=== PATIENT | female | born 1940 | race Caucasian/White ===

== ENCOUNTER 2019-12-07 12:08 | Inpatient (IN) | payer OTHER ==
[2019-12-07] MEDS ORDERED: CEFTRIAXONE/SWI 1gm 1 GM/10 ML SYR ONE (13:23)
[2019-12-07] MEDS ORDERED: NA CHLORIDE 0.9% 1,000 ML ONE (13:23)
[2019-12-07 13:25] LABS: Urine Blood TRACE (NEG); Urine Glucose NEGATIVE (NEG); Urine Protein TRACE (NEG); Urine Specific Gravity 1.015 (1.005-1.030); Urine pH 5.5 (5.0-7.0)
--- NOTE | 2019-12-07 13:27 | RAD REPORT ---
EXAM DESCRIPTION: RAD - Chest Single View - 12/07/2019 1:20 pm CLINICAL HISTORY: Cough;COPD COMPARISON: November 2017 TECHNIQUE: AP portable chest image was obtained 12/07/2019 1:20 pm . FINDINGS: Lung volumes are low. Lung markings are further accentuated by large body habitus and port able technique. No dense consolidation in the mid or upper lung mann. Bilateral pleural effusions a re present. Cardiomegaly is present with vascular engorgement. No pneumothorax. No acute bony abnorma lity seen. No acute aortic findings suspected. IMPRESSION: Mild CHF/volume overload pattern accentuated by exam limitations.
[2019-12-07 13:31] LABS: Absolute Lymphocytes (CBC) 1.1 K/uL (0.7-4.9); Basophils % 0.9 % (0-1.3); Hematocrit 36.8 % (36.0-45.0); Lymphocytes % 8.5 % (15.3-44.8); MPV 8.8 fL (7.6-11.3); RBC Red Blood Cell Count 4.45 M/uL (3.86-4.86)
[2019-12-07 13:40] LABS: Urine Bacteria LOADED /HPF (<20); Urine Culture Reflex Order NOT NEEDED; Urine RBC <5 /HPF (NONE SEEN)
[2019-12-07 13:51] LABS: ALT/SGPT 9 U/L (12-78); AST/SGOT 7 U/L (15-37); Albumin 2.5 g/dL (3.4-5.0); Alkaline Phosphatase 99 U/L (45-117); BUN Blood Urea Nitrogen 51 mg/dL (7-18); Bicarbonate 19 mmol/L (21-32); Bilirubin Direct < 0.1 mg/dL (0-0.2); Bilirubin Total 0.3 mg/dL (0.2-1.0); Glucose Level 121 mg/dL (74-106); Magnesium 2.3 mg/dL (1.8-2.4); NT PRO-BNP 9816 pg/mL (<450); Protein, Total 6.7 g/dL (6.4-8.2); Sodium Level 136 mmol/L (136-145); Troponin (Emerg Dept Use Only) < 0.02 ng/mL (0.0-0.045)
[2019-12-07 13:55] LABS: Potassium 6.1 mmol/L (3.5-5.1)
--- NOTE | 2019-12-07 14:08 | EDPHYS ---
Physician Documentation [facility] Name: Frieda Mayorga Age: 79 yrs Sex: Female : 1940 Arrival Date: 12/07/2019 Time: 12:19 Bed 8 Private MD: ED Physician Von Diez HPI: 12/06 13:01 This 79 yrs old Female presents to ER via EMS with complaints of Weakness. win 13:01 The patient presents to the emergency department with weakness of the entire body, win generalized weakness. Onset: The symptoms/episode began/occurred 2 day(s) ago. Historical: - Allergies: 12:27 Demerol; bp - Home Meds: 12:27 Clarinex Oral [Active]; Lasix Oral [Active]; Lisinopril Oral [Active]; Lyrica Oral bp [Active]; Melatonin Oral [Active]; Metformin Oral [Active]; ropinirole oral oral [Active]; sertraline oral oral [Active]; Singulair Oral [Active]; Spironolactone Oral [Active]; Trazodone Oral [Active]; Ventolin Nebulizer [Active]; - PMHx: 12:27 COPD; Diabetes - NIDDM; Hypertension; bp - Immunization history:: Adult Immunizations up to date. - Social history:: Smoking status: Patient denies any tobacco usage or history of. ROS: 13:03 Constitutional: Negative for fever, chills, and weight loss, Eyes: Negative for injury, win pain, redness, and discharge, ENT: Negative for injury, pain, and discharge, Neck: Negative for injury, pain, and swelling, Cardiovascular: Negative for chest pain, palpitations, and edema, Respiratory: Negative for shortness of breath, cough, wheezing, and pleuritic chest pain, Abdomen/GI: Negative for abdominal pain, nausea, vomiting, diarrhea, and constipation, Back: Negative for injury and pain, MS/Extremity: Negative for injury and deformity, Skin: Negative for injury, rash, and discoloration, Psych: Negative for depression, anxiety, suicide ideation, homicidal ideation, and hallucinations, Allergy/Immunology: Negative for hives, rash, and allergies, Endocrine: Negative for neck swelling, polydipsia, polyuria, polyphagia, and marked weight changes, Hematologic/Lymphatic: Negative for swollen nodes, abnormal bleeding, and unusual bruising. 13:03 : Positive for urinary symptoms, burning with urination, difficulty urinating. 13:03 Neuro: Positive for weakness. Exam: 13:03 Constitutional: This is a well developed, well nourished patient who is awake, alert, win and in no acute distress. Head/Face: Normocephalic, atraumatic. Eyes: Pupils equal round and reactive to light, extra-ocular motions intact. Lids and lashes normal. Conjunctiva and sclera are non-icteric and not injected. Cornea within normal limits. Periorbital areas with no swelling, redness, or edema. Neck: Trachea midline, no thyromegaly or masses palpated, and no cervical lymphadenopathy. Supple, full range of motion without nuchal rigidity, or vertebral point tenderness. No Meningismus. Chest/axilla: Normal chest wall appearance and motion. Nontender with no deformity. No lesions are appreciated. Cardiovascular: Regular rate and rhythm with a normal S1 and S2. No gallops, murmurs, or rubs. Normal PMI, no JVD. No pulse deficits. Respiratory: Lungs have equal breath sounds bilaterally, clear to auscultation and percussion. No rales, rhonchi or wheezes noted. No increased work of breathing, no retractions or nasal flaring. Abdomen/GI: Soft, non-tender, with normal bowel sounds. No distension or tympany. No guarding or rebound. No evidence of tenderness throughout. Back: No spinal tenderness. No costovertebral tenderness. Full range of motion. Female : Normal external genitalia. Skin: Warm, dry with normal turgor. Normal color with no rashes, no lesions, and no evidence of cellulitis. MS/ Extremity: Pulses equal, no cyanosis. Neurovascular intact. Full, normal range of motion. Neuro: Awake and alert, GCS 15, oriented to person, place, time, and situation. Cranial nerves II-XII grossly intact. Motor strength 5/5 in all extremities. Sensory grossly intact. Cerebellar exam normal. Normal gait. Psych: Awake, alert, with orientation to person, place and time. Behavior, mood, and affect are within normal limits. 13:03 ENT: Mouth: Lips: dry, Oral mucosa: dry, Gums: normal with healthy appearance, Tongue: is normal, abscess, is not appreciated, drooling, is not appreciated. 13:03 Musculoskeletal/extremity: DVT Exam: No signs of deep vein thrombosis. no pain, no swelling, no tenderness, negative Homans' sign noted on exam, no appreciated bluish discoloration, no erythema, no increased warmth. 13:05 Radiologist reports: na [facility] 13:56 ECG was reviewed by the Attending Physician. [facility] Vital Signs: 12:19 BP 113 / 75; Pulse 65; Resp 24; Temp 98.1; Pulse Ox 95% on 2 lpm NC; bp 13:15 BP 138 / 54; Pulse 70; Resp 22; Pulse Ox 98% ; bp 15:28 BP 141 / 59; Pulse 56; Resp 20 S; Pulse Ox 97% on R/A; Pain 0/10; iw 15:34 Weight 172.37 kg (R); iw MDM: 12:24 Patient medically screened. [facility] 13:05 Data reviewed: vital signs, nurses notes, lab test result(s), EKG, radiologic studies, win plain films. 13:06 Differential diagnosis: nonspecific abdominal pain, Dementia, urinary tract infection. [facility] Differential Diagnosis altered mental status, sepsis. Data interpreted: athletic monitor: rate is 65 beats/min, rhythm is normal sinus rhythm, Pulse oximetry: on room air is 95 %. Test interpretation: by ED physician or midlevel provider: ECG, plain radiologic studies. Counseling: I had a detailed discussion with the patient and/or guardian regarding: the historical points, exam findings, and any diagnostic results supporting the discharge/admit diagnosis, lab results, radiology results, the need for further work-up and treatment in the hospital. 13:54 ED course: weak, obese and dry mucus membranes. [facility] 14:05 ED course: acute renal failure, hyperkalemia. [facility] 12/06 12:50 Order name: Urine Culture 12/06 12:50 Order name: Urine Microscopic Only; Complete Time: 13:52 12/06 13:00 Order name: Basic Metabolic Panel; Complete Time: 14:01 [facility] 12/06 13:00 Order name: CBC with Diff; Complete Time: 14:31 [facility] 12/06 13:00 Order name: LFT's; Complete Time: 14:01 [facility] 12/06 13:00 Order name: Magnesium; Complete Time: 14:01 [facility] 12/06 13:00 Order name: NT PRO-BNP; Complete Time: 14:01 [facility] 12/06 13:00 Order name: Troponin (emerg Dept Use Only); Complete Time: 14:01 [facility] 12/06 13:00 Order name: XRAY Chest (1 view); Complete Time: 13:52 [facility] 12/06 13:14 Order name: Urine Dipstick--Ancillary (enter results); Complete Time: 13:48 12/06 13:32 Order name: Manual Differential; Complete Time: 14:31 [facility] 12/06 13:56 Order name: CT Stone Protocol; Complete Time: 14:31 [facility] 12/06 15:56 Order name: [facility] 12/06 12:50 Order name: Urine Dipstick-Ancillary (obtain specimen); Complete Time: 12:55 bp 12/06 12:50 Order name: Straight Cath; Complete Time: 12:55 bp 12/06 13:00 Order name: EKG; Complete Time: 13:01 [facility] 12/06 13:00 Order name: Cardiac monitoring; Complete Time: 13:15 [facility] 12/06 13:00 Order name: EKG - Nurse/Tech; Complete Time: 13:59 [facility] 12/06 13:00 Order name: IV Saline Lock; Complete Time: 13:15 [facility] 12/06 13:00 Order name: Labs collected and sent; Complete Time: 13:15 [facility] 12/06 13:00 Order name: O2 Per Protocol; Complete Time: 13:15 [facility] 12/06 13:00 Order name: O2 Sat Monitoring; Complete Time: 13:15 [facility] EC:56 Rate is 69 beats/min. Rhythm is regular. QRS Malone is Normal. IL interval is normal. QRS win interval is normal. QT interval is normal. No Q waves. T waves are Normal. No ST changes noted. Clinical impression: NSR w/ Non-specific ST/T Changes and No evidence of ischemia. Interpreted by me. Reviewed by me. Administered Medications: 13:35 Drug: Rocephin 1 grams Route: IV; Rate: per protocol; Site: left hand; iw 13:36 Drug: NS 0.9% 500 ml Route: IV; Rate: bolus; Site: left hand; iw 14:36 Drug: NS 0.9% 1000 ml Route: IV; Rate: 125 ml/hr; Site: left wrist; iw 14:50 Drug: D50W 50 ml Route: IVP; Site: left wrist; iw 15:00 Drug: Insulin Regular Human 10 units {Co-Signature: bp (Oscar Potts RN).} Route: IVP; iw Site: left wrist; 15:12 Drug: Kayexalate 30 grams Route: PO; iw 15:20 Drug: Calcium Gluconate 1 grams Route: IVPB; Infused Over: 20 mins; Site: left wrist; iw 15:27 Drug: Albuterol - atroVENT (3:1) (2.5 mg - 0.5 mg) 3 ml Route: Nebulizer; iw Disposition: 12/07/19 14:08 Hospitalization ordered by Tre Amin for Inpatient Admission. Preliminary diagnosis are Weakness, Urinary tract infection, site not specified, Acute kidney failure, Obesity, unspecified, Hyperkalemia, Elevated white blood cell count. - Bed requested for Telemetry/MedSurg (Inpatient). - Status is Inpatient Admission. iw - Condition is Fair. - Problem is new. - Symptoms have improved. Critical care time excluding procedures: 14:05 Critical care time: Bedside Care: 30 minutes. Total time: 30 minutes win Signatures: Dispatcher [employer] EDVon Castro MD MD cha Williams, Irene, RN RN iw Rebel Hobbs, FIRER ELECTRIC LOCOMOTIVE-C FIRER ELECTRIC LOCOMOTIVE-Cla1 Oscar Potts RN RN bp Botello, Elizabeth eb Brian Peltier RN bp Corrections: (The following items were deleted from the chart) 14:17 14:08 Hospitalization Ordered by Tre Amin DO for Inpatient Admission. Preliminary eb diagnosis is Weakness; Urinary tract infection, site not specified; Acute kidney failure; Obesity, unspecified; Hyperkalemia; Elevated white blood cell count. Bed requested for Telemetry/MedSurg (Inpatient). Status is Inpatient Admission. Condition is Fair. Problem is new. Symptoms have improved. [facility] 15:52 14:17 12/07/2019 14:08 Hospitalization Ordered by Tre Amin DO for Inpatient eb Admission. Preliminary diagnosis is Weakness; Urinary tract infection, site not specified; Acute kidney failure; Obesity, unspecified; Hyperkalemia; Elevated white blood cell count. Bed requested for Telemetry/MedSurg (Inpatient). Status is Inpatient Admission. Condition is Fair. Problem is new. Symptoms have improved. eb 17:48 15:52 12/07/2019 14:08 Hospitalization Ordered by Tre Amin DO for Inpatient iw Admission. Preliminary diagnosis is Weakness; Urinary tract infection, site not specified; Acute kidney failure; Obesity, unspecified; Hyperkalemia; Elevated white blood cell count. Bed requested for Telemetry/MedSurg (Inpatient). Status is Inpatient Admission. Condition is Fair. Problem is new. Symptoms have improved. eb
--- NOTE | 2019-12-07 14:08 | ER ---
Nurse's Notes [facility] Name: Frieda Mayorga Age: 79 yrs Sex: Female : 1940 Arrival Date: 12/07/2019 Time: 12:19 Bed 8 Private MD: Diagnosis: Weakness;Urinary tract infection, site not specified;Acute kidney failure;Obesity, unspecified;Hyperkalemia;Elevated white blood cell count Presentation: 12/06 12:19 Chief complaint: EMS states: BLE WEAKNESS x2 DAYS, DIRECTED TO CALL EMS BY PCP. bp Coronavirus screen: Proceed with normal triage. Patient reports shortness of breath or difficulty breathing. Ebola Screen: No symptoms or risks identified at this time. Initial Sepsis Screen: Does the patient meet any 2 criteria? RR > 20 per min. No. Patient's initial sepsis screen is negative. Does the patient have a suspected source of infection? Yes: Dysuria/Frequency/Urgency/UTI. Risk Assessment: Do you want to hurt yourself or someone else? Patient reports no desire to harm self or others. Onset of symptoms is unknown. Care prior to arrival: Glucose check: 116. 12:19 Method Of Arrival: EMS: [facility] bp 12:19 Acuity: TAMMIE 3 bp Triage Assessment: 12:20 General: Appears in no apparent distress. uncomfortable, obese, Behavior is bp cooperative, appropriate for age, anxious. Pain: Complains of pain in right leg and left leg. EENT: No deficits noted. Neuro: No deficits noted. Cardiovascular: No deficits noted. Respiratory: No deficits noted. GI: No signs and/or symptoms were reported involving the gastrointestinal system. : Reports urgency, urinary frequency. Derm: Rash noted that is vesicular, on right leg and left leg. Musculoskeletal: Reports weakness in right knee and left knee. Historical: - Allergies: 12:27 Demerol; bp - Home Meds: 12:27 Clarinex Oral [Active]; Lasix Oral [Active]; Lisinopril Oral [Active]; Lyrica Oral bp [Active]; Melatonin Oral [Active]; Metformin Oral [Active]; ropinirole oral oral [Active]; sertraline oral oral [Active]; Singulair Oral [Active]; Spironolactone Oral [Active]; Trazodone Oral [Active]; Ventolin Nebulizer [Active]; - PMHx: 12:27 COPD; Diabetes - NIDDM; Hypertension; bp - Immunization history:: Adult Immunizations up to date. - Social history:: Smoking status: Patient denies any tobacco usage or history of. Screenin:29 Abuse screen: Denies threats or abuse. Denies injuries from another. Nutritional bp screening: No deficits noted. Tuberculosis screening: No symptoms or risk factors identified. Fall Risk Fall in past 12 months (25 points). No secondary diagnosis (0 pts). No IV (0 pts). Ambulatory Aid- None/Bed Rest/Nurse Assist (0 pts). Gait- Weak (10 pts.). Mental Status- Oriented to own ability (0 pts). Total Busch Fall Scale indicates Low Risk Score (25-44 pts). Fall prevention measures have been instituted. Side Rails Up X 2 Placed close to Nursing Station Frequent Obs/Assesments occuring As available Patient and Family Educated on Fall Prevention Program and strategies. Assessment: 12:29 General: SEE TRIAGE NOTE. bp 13:45 Reassessment: Patient appears in no apparent distress at this time. Patient and/or iw family updated on plan of care and expected duration. Pain level reassessed. pt c/o pain to right hip, repositioned in bed for comfort, IVF infusing to left wrist, call light in reach. 15:29 Reassessment: Patient appears in no apparent distress at this time. pt repositioned in iw bed for comfort, NAD, pt medicated, albuterol treatment in place, pt updated on POC, will be admitted. Vital Signs: 12:19 BP 113 / 75; Pulse 65; Resp 24; Temp 98.1; Pulse Ox 95% on 2 lpm NC; bp 13:15 BP 138 / 54; Pulse 70; Resp 22; Pulse Ox 98% ; bp 15:28 BP 141 / 59; Pulse 56; Resp 20 S; Pulse Ox 97% on R/A; Pain 0/10; iw 15:34 Weight 172.37 kg (R); iw ED Course: 12:19 Patient arrived in ED. bp 12:20 Triage completed. bp 12:20 Arm band placed on. bp 12:24 Von Diez MD is Attending Physician. win 12:29 Patient has correct armband on for positive identification. Bed in low position. Call bp light in reach. Side rails up X2. 12:31 Oscar Potts, RN is Primary Nurse. bp 13:15 Inserted saline lock: 22 gauge in left wrist, using aseptic technique. Blood collected. bp 13:20 XRAY Chest (1 view) In Process Unspecified. EDMS 13:45 EKG done, by ED staff, reviewed by Von Diez MD. formerly [facility], [facility]–1983 14:06 Tre Amin DO is Hospitalizing Provider. win 14:12 CT Stone Protocol In Process Unspecified. EDMS 17:48 No provider procedures requiring assistance completed. Patient admitted, IV remains in iw place. Administered Medications: 13:35 Drug: Rocephin 1 grams Route: IV; Rate: per protocol; Site: left hand; iw 13:36 Drug: NS 0.9% 500 ml Route: IV; Rate: bolus; Site: left hand; iw 14:36 Drug: NS 0.9% 1000 ml Route: IV; Rate: 125 ml/hr; Site: left wrist; iw 14:50 Drug: D50W 50 ml Route: IVP; Site: left wrist; iw 15:00 Drug: Insulin Regular Human 10 units {Co-Signature: bp (Oscar Potts RN).} Route: IVP; iw Site: left wrist; 15:12 Drug: Kayexalate 30 grams Route: PO; iw 15:20 Drug: Calcium Gluconate 1 grams Route: IVPB; Infused Over: 20 mins; Site: left wrist; iw 15:27 Drug: Albuterol - atroVENT (3:1) (2.5 mg - 0.5 mg) 3 ml Route: Nebulizer; iw Outcome: 14:08 Decision to Hospitalize by Provider. win 17:47 Admitted to Med/surg accompanied by tech, via stretcher, room 215, Report called to jn Chisholm RN 17:47 Condition: good 17:47 Discharge instructions given to patient, Instructed on the need for admit, Demonstrated understanding of instructions. 17:48 Patient left the ED. iw Signatures: Dispatcher [employer] Von Levy MD MD cha Williams, Irene, RN RN Yulia Samayoa formerly [facility], [facility] Oscar Potts, CARMEN RN bp Oscar gonsalez
--- NOTE | 2019-12-07 14:23 | RAD REPORT ---
EXAM DESCRIPTION: CT - Stone Protocol - 12/07/2019 2:12 pm CLINICAL HISTORY: FLANK PAIN COMPARISON: No comparisons TECHNIQUE: Axial 5 mm thick images were obtained without oral or IV contrast. The [id number] span s the entirety of the system including uppermost abdomen and lung bases. All CT scans are performed using dose optimization technique as appropriate and may include automated exposure control or mA/KV adjustment according to patient size. FINDINGS: No hydronephrosis is present and no obstructing ureteral calculi. No suspicious renal mass es. Isodense masses and pyelonephritis are not excluded on a stone protocol CT scan. No significant a drenal finding. Urinary bladder is fully contracted around a Person catheter. Imaged portions of the liver, spleen and pancreas show no suspicious findings on non-contrast imaging . Cholecystectomy clips are present. No biliary tree dilatation. Small hiatal hernia is present. No acute stomach finding. No dilated large or small bowel. A primary GI process is not suspected. A 4 centimeter periumbilical hernia is present containing fat. This is a minimal amount of congestion or edema. No free air or pneumatosis. Patient has fluid retention in the subcutaneous fatty tissues of the abdomen. Pelvic floor assessment is limited. There is substantial spray artifact from left hip prosthesis. Periaortic/ pericaval small nonspecific lymph nodes are present. Patient has significant bilateral in guinal lymphadenopathy worse on the right. There appears to be external iliac lymphadenopathy on the right that may be measures large is 5 cm x 3 cm. The spray artifact limits detail. Bony degenerative changes are present 50% compression fracture deformity of L4 is present but appears to be old. Degenerative changes are present L4 in the lumbar and lower thoracic spine. Small to moderate right pleural effusion partially imaged. Trace left pleural effusion. Bilateral lob e atelectasis present. IMPRESSION: Abnormal inguinal lymphadenopathy worse on the right with possible external iliac chain pelvic lymphadenopathy as well. Lymph nodes may all be reactive from a lower extremity infectious/ inflammatory process. Pathologic l ymphadenopathy cannot be excluded. Isodense masses and pyelonephritis are not excluded on stone protocol technique.Overall exam is limit ed in the absence of IV contrast. No acute GI process seen. Bilateral pleural effusions more prominent on the right. Atelectasis also present.
[2019-12-07 14:30] LABS: Anisocytosis 1+; Blood Morphology Comment NOTED (NOT SEEN); Platelet Estimate ADEQ; Poikilocytosis 1+
[2019-12-07] MEDS ORDERED: ALBUTEROL 2.5 MG/3 ML NEB SOL ONE (14:52)
[2019-12-07] MEDS ORDERED: INSULIN -REGULAR HUMAN 50 UNIT/0.5 ML ML ONE (14:53)
[2019-12-07] MEDS ORDERED: CALCIUM GLUCONATE 1 GM IVPB 1 GM/50 ML BAG IV ONE (14:54)
[2019-12-07] MEDS ORDERED: D50W 25 GM/50 ML SYRINGE/VIAL IV ONE (14:54)
[2019-12-07] MEDS ORDERED: SOD POLYSTYREN SUL 15 GM/60 ML UCUP ONE (14:54)
[2019-12-07] MEDS ORDERED: WATER FOR INJ,STERILE 20 ML ONE (14:55)
--- NOTE | 2019-12-07 15:47 | P.HP ---
Certification for Inpatient Patient admitted to: Inpatient With expected LOS: >2 Midnights Patient will require the following post-hospital care: Home Health Services Practitioner: I am a practitioner with admitting privileges, knowledge of patient current condition, hospital course, and medical plan of care. Services: Services provided to patient in accordance with Admission requirements found in Title 42 Section 412.3 of the Code of Federal Regulations <Rebel Hobbs - Last Filed: 12/07/19 15:41> Patient History Date of Service: 12/07/19 Primary Care Provider: Maryjane Garcia Reason for admission: ARF, Hyperkalemia, UTI History of Present Illness: 79-year-old female with medical history including diabetes mellitus type 2, COPD, hypertension, CHF, chronic lymphedema presented the emergency department with a 2 day history of general weakness and urinary symptoms. During her evaluation in the emergency department patient was found to be in acute renal failure with hyperkalemia and have a urinary tract infection. ED provider wishes to admit patient for further evaluation and management this condition. When I saw the patient in the emergency department she appeared stable. Patient was afebrile, normotensive, and not tachycardic. Patient does not appear septic at this time. Patient be admitted to the hospital service for further evaluation and management of her condition. Home medications list reviewed: Yes - Past Medical/Surgical History Diabetic: Yes -: Diabetes mellitus type 2 -: COPD -: Hypertension -: CHF Past Surgical History: Reviewed- Non-Contributory Psychosocial/ Personal History: Patient lives at home with her . - Family History Family History: Reviewed- Non-Contributory - Social History Smoking Status: Never smoker Alcohol use: No CD- Drugs: No Caffeine use: Yes Place of Residence: Home <AnjelRebel - Last Filed: 12/07/19 15:41> Date of Service: 12/07/19 - Past Medical/Surgical History -: History of breast cancer -: Right breast mastectomy - Family History Family History: Reviewed- Non-Contributory <Tre Amin - Last Filed: 12/07/19 18:10> Allergies adhesive Allergy (Verified 02/27/12 19:16) Rash meperidine HCl [From Demerol] Adverse Reaction (Verified 02/27/12 19:16) Itching Home Medications: Duloxetine HCl [Cymbalta] 60 mg PO DAILY 02/27/12 Furosemide [Lasix] 80 mg PO DAILY 02/27/12 Metformin HCl 500 mg PO DAILY 02/27/12 ALPRAZolam [Xanax*] 0.5 mg PO BIDP PRN 08/01/12 Budesonide/Formoterol Fumarate [Symbicort 160-4.5 Mcg Inhaler] 1 puff IH BID 08/01/12 Carbidopa/Levodopa/Entacapone [Jcxlrdxza-Sdfdkwme-Xfet 150 mg] 1 each PO 5XD 08/01/12 Diazepam 5 mg PO BEDTIME 08/01/12 Fentanyl Patch [Duragesic Patch*] 25 mcg TD Q72H 08/01/12 Folic Acid [Folic Acid*] 2 mg PO DAILY 08/01/12 Hydrocodone Bit/Acetaminophen [Hydrocodon-Acetaminophen 5-500] 1 each PO Q6H 08/01/12 methocarbamoL [Robaxin-750*] 750 mg PO BID 08/01/12 Review of Systems General: Weakness, Malaise Eyes: Unremarkable ENT: Unremarkable Respiratory: Shortness of Breath, SOB with Excertion Cardiovascular: Unremarkable Gastrointestinal: Unremarkable Genitourinary: Dysuria, Frequency, Urgency Musculoskeletal: Unremarkable Integumentary: Unremarkable Neurological: Unremarkable <Rebel Hobbs - Last Filed: 12/07/19 15:41> Physical Examination - Physical Exam General: Alert, In no apparent distress, Oriented x3 HEENT: Atraumatic, Normocephalic, Mucous membr. moist/pink Neck: Supple Respiratory: Clear to auscultation bilaterally, Diminished (Bilaterally) Cardiovascular: Edema (Bilateral lower extremity edema with mild pitting) Capillary refill: <2 Seconds Gastrointestinal: Normal bowel sounds, Soft and benign Musculoskeletal: No tenderness, No warmth Integumentary: Erythema (Mild erythema bilateral lower extremities appears to be chronic lymphedema) Neurological: Normal speech, Normal strength at 5/5 x4 extr, Normal tone, Normal affect - Studies Laboratory Data (last 24 hrs) 12/07/19 13:15: WBC 13.3 H, Hgb 11.5 L, Hct 36.8, Plt Count 312 12/07/19 13:15: Sodium 136, Potassium 6.1 H*, BUN 51 H, Creatinine 2.92 H, Glucose 121 H, Magnesium 2.3, Total Bilirubin 0.3, AST 7 L, ALT 9 L, Alkaline Phosphatase 99 <Rebel Hobbs - Last Filed: 12/07/19 15:41> - Physical Exam Lymphatics: Inguinal lymphadenopathy, Other (Right axillary adenopathy with possible mass. Right supraclavicular adenopathy with possible mass) - Studies Laboratory Data (last 24 hrs) 12/07/19 13:15: WBC 13.3 H, Hgb 11.5 L, Hct 36.8, Plt Count 312 12/07/19 13:15: Sodium 136, Potassium 6.1 H*, BUN 51 H, Creatinine 2.92 H, Glucose 121 H, Magnesium 2.3, Total Bilirubin 0.3, AST 7 L, ALT 9 L, Alkaline Phosphatase 99 <Tre Amin - Last Filed: 12/07/19 18:10> Assessment and Plan - Plan Assessment Acute renal failure with hyperkalemia Urinary tract infection Dyspnea likely secondary to CHF COPD Hypertension Diabetes mellitus type 2 Chronic lymphedema Plan Acute renal failure with hyperkalemia: Nephrology has been consulted on this case. Patient did receive calcium, Kayexalate, albuterol, insulin, dextrose in the emergency department for potassium of 6.1. Patient will remain on telemetry for the duration of this hospitalization. Will closely monitor renal function and potassium levels. Will avoid NSAIDs/nephrotoxic drugs and contrast. Appreciate further input from nephrology. DVT prophylaxis with heparin 5000 units subcutaneous twice daily. Anticipate clinical improvement next 48-72 hr. Patient may require Home Health services at discharge. Will address this in detail with social science manager. Urinary tract infection: Will continue with Rocephin IV 1 g once daily, will follow up with urine culture from the emergency department. Dyspnea likely secondary to CHF: Will diurese patient with Lasix IV. Will monitor patient's volume status and renal function closely in conjunction with nephrology. COPD: Will provide patient with oxygen as needed in addition to albuterol inhaler. Will obtain and continue patient's home medications as well. Hypertension: Will obtain and continue patient's home medication. Will adjust as needed. Due to patient's acute renal failure. Diabetes mellitus type 2: Patient we placed on a.c. HS Accu-Cheks and sliding scale insulin therapy at this time. Will continue patient's home medications as appropriate. Changes made may need to be made due to acute renal failure. Chronic lymphedema: Will continue patient's home care for chronic lymphedema. Discharge Plan: Home Plan to discharge in: Greater than 2 days - Advance Directives Does patient have a Living Will: Yes Does patient have a Durable POA for Healthcare: Yes - Code Status/Comfort Care Code Status Assessed: Yes (Patient is full code) Critical Care: No Time Spent Managing Pts Care (In Minutes): 55 <Rebel Hobbs - Last Filed: 12/07/19 15:41> - Plan Patient seen and examined. Agree with plan of care. Case discussed at length including evaluation, assessment and plan of care with nurse practitioner. Patient with acute renal failure. Continue IV antibiotic therapy. Will consult Nephrology to further monitor and address. Patient on IV antibiotic therapy for UTI. Patient has adenopathy to the right axilla and supraclavicular region. Patient with history of right breast cancer with mastectomy. Will obtain ultrasound to further evaluate. This may need to be further evaluated and assessed by her prior surgeon. Patient with chronic lymphedema. Will continue with wrappings. Will continue to reassess and monitor closely. Anticipate discharge in the next 72 hr. <Tre Amin - Last Filed: 12/07/19 18:10>
[2019-12-07] MEDS: INSULIN -REGULAR HUMAN 50 UNIT/0.5 ML ML SQ SCH ×2 (18:06→21:00)
[2019-12-07] MEDS ORDERED: ONDANSETRON 4 MG/2 ML VIAL IV PRN (18:06)
[2019-12-07] MEDS: FUROSEMIDE 40 MG/4 ML VIAL IV SCH (18:06)
[2019-12-07 18:23] VITALS: BMI 55.4
[2019-12-07] MEDS: SOD POLYSTYREN SUL 15 GM/60 ML UCUP PO SCH ×2 (19:57→22:18)
[2019-12-07] MEDS: HEPARIN 5000 UNIT/ML 1 ML VIAL SQ SCH (20:57)
[2019-12-08] MEDS: ROPINIROLE HCL 1 MG TAB PO SCH ×4 (01:44→22:09)
[2019-12-08] MEDS: TIZANIDINE 4 MG TABLET PO SCH ×3 (01:45→17:01)
[2019-12-08] MEDS: FENTANYL 25 MCG/PATCH TD SCH (01:45)
[2019-12-08 04:21] LABS: Absolute Lymphocytes (CBC) 1.2 K/uL (0.7-4.9); Basophils % 1.1 % (0-1.3); Lymphocytes % 9.8 % (15.3-44.8); MPV 8.6 fL (7.6-11.3); RBC Red Blood Cell Count 3.65 M/uL (3.86-4.86)
[2019-12-08 04:45] LABS: Potassium 5.6 mmol/L (3.5-5.1); Thyroid Stimulating Hormone 1.93 uIU/mL (0.360-3.740); Uric Acid 12.6 mg/dL (2.6-6.0)
[2019-12-08 06:01] LABS: Urine Appearance CLOUDY; Urine Bilirubin NEGATIVE (NEG); Urine Blood 1+ (NEG); Urine Color YELLOW; Urine Glucose NEGATIVE (NEG); Urine Protein 1+ (NEG); Urine Specific Gravity 1.015 (1.005-1.030); Urine Urobilinogen 0.2 mg/dL (0.2-1.0)
[2019-12-08 06:42] LABS: Urine Bacteria 20-50 /HPF (<20)
[2019-12-08 06:57] LABS: Urine Culture Reflex Order REFLEXED
[2019-12-08] MEDS: INSULIN -REGULAR HUMAN 50 UNIT/0.5 ML ML SQ SCH ×4 (07:30→21:00)
[2019-12-08] MEDS: HOME MED 1 EA UNK (Fluticasone/Umeclidin/Vilanter [Trelegy Ellipta 100-62.5-25] 1 EACH) IH SCH (09:00)
[2019-12-08] MEDS ORDERED: SPIRONOLACTONE 25 MG TABLET PO SCH (09:00)
[2019-12-08] MEDS: MAGNESIUM OXIDE 400 MG TAB PO SCH (09:00)
[2019-12-08] MEDS: LORATADINE PO SCH (09:00)
[2019-12-08] MEDS: PSEUDOEPHEDRINE PO SCH (09:00)
[2019-12-08] MEDS ORDERED: FUROSEMIDE 40 MG TABLET PO SCH ×2 (09:00→21:00)
[2019-12-08] MEDS ORDERED: SOD POLYSTYREN SUL 15 GM/60 ML UCUP PO ONE (09:17)
[2019-12-08] MEDS: CEFTRIAXONE/SWI 1gm 1 GM/10 ML SYR IVP SCH (09:51)
[2019-12-08] MEDS: PREGABALIN 75 MG CAP PO SCH ×2 (09:52→22:09)
[2019-12-08] MEDS: DOCUSATE NA 100 MG CAP PO SCH ×2 (09:52→22:09)
[2019-12-08] MEDS: MONTELUKAST 10 MG TAB PO SCH (09:53)
[2019-12-08] MEDS: FUROSEMIDE 40 MG/4 ML VIAL IV SCH ×2 (09:53→17:00)
[2019-12-08] MEDS: HEPARIN 5000 UNIT/ML 1 ML VIAL SQ SCH ×2 (09:54→22:09)
--- NOTE | 2019-12-08 09:56 | RAD REPORT ---
EXAM DESCRIPTION: US - AXILLA ONLY - 12/08/2019 9:44 am CLINICAL HISTORY: Right axillary mass COMPARISON: None FINDINGS: Multiple right axillary lymph nodes. Largest measures 4 x 2 x 3 centimeters and is unifor mly hypoechoic. Right supraclavicular lymph node measures 8 millimeters and is hypoechoic IMPRESSION: Right axillary and supraclavicular lymphadenopathy. This likely indicates neoplasm. This would be amenable to ultrasound-guided core biopsy
--- NOTE | 2019-12-08 12:44 | ECHO ---
HEIGHT: 5 ft 3 in WEIGHT: 321 lb 4.8 oz DATE OF STUDY: 12/08/[address]: Rebel Hobbs NP 2-DIMENSIONAL: YES M.MODE: YES DOPPLER: YES COLOR FLOW: YES TDS: YES PORTABLE: N DEFINITY: NO BUBBLE STUDY: NO DIAGNOSIS: CONGESTIVE HEART FAILURE CARDIAC HISTORY: CATHERIZATION: NO SURGERY: NO PROSTHETIC VALVE: NO PACEMAKER: NO MEASUREMENTS (cm) DIASTOLIC (NORMALS) SYSTOLIC (NORMALS) IVSd 1.0 (0.6-1.2) LA Diam 3.8 (1.9-4.0) LVEF 79% LVIDd 3.6 (3.5-5.7) LVIDs 1.9 (2.0-3.5) %FS 47% LVPWd 0.9 (0.6-1.2) Ao Diam 3.0 (2.0-3.7) 2 DIMENSIONAL ASSESSMENT: RIGHT ATRIUM: NORMAL LEFT ATRIUM: NORMAL RIGHT VENTRICLE: NORMAL LEFT VENTRICLE: NORMAL TRICUSPID VALVE: NORMAL MITRAL VALVE: NORMAL PULMONIC VALVE: NORMAL AORTIC VALVE: NORMAL PERICARDIAL EFFUSION: NONE AORTIC ROOT: NORMAL LEFT VENTRICULAR WALL MOTION: NORMAL DOPPLER/COLOR FLOW: NORMAL COMMENTS: NORMAL LEFT VENTRICULAR SIZE AND FUNCTION. MILD MITRAL ANNULAR CALCIFICATION. NO EFFUSION. NO WALL MOTION ABNORMALITY. TECHNOLOGIST: Connor VERGARA
[2019-12-08] MEDS ORDERED: FORMULATION-R RECTAL 30GM PR PRN (14:08)
--- NOTE | 2019-12-08 16:15 | P.PN ---
Subjective Date of Service: 12/08/19 Primary Care Provider: Maryjane Garcia Chief Complaint: ARF, Hyperkalemia, UTI Subjective: Ambulating, Working w/ PT Review of Systems General: Unremarkable Eyes: Unremarkable ENT: Unremarkable Respiratory: Unremarkable Cardiovascular: Unremarkable Gastrointestinal: Unremarkable Genitourinary: Unremarkable Musculoskeletal: Unremarkable Integumentary: Unremarkable Neurological: Unremarkable Lymphatics: Unremarkable Physical Examination - Vital Signs Temperature: 97.5 F Blood Pressure: 98/50 Pulse: 66 Respirations: 20 Pulse Ox (%): 95 - Physical Exam General: Alert, In no apparent distress, Oriented x3 HEENT: Atraumatic, Normocephalic Neck: Supple Respiratory: Clear to auscultation bilaterally, Normal air movement Cardiovascular: Normal pulses, Regular rate/rhythm, Normal S1 S2, Other (Patient with lymphedema) Capillary refill: <2 Seconds Gastrointestinal: Normal bowel sounds Musculoskeletal: No contractures, No erythema, No warmth Integumentary: No erythema, No warmth Neurological: Normal speech, Normal strength at 5/5 x4 extr Lymphatics: Axilla lymphadenopathy, Inguinal lymphadenopathy Assessment & Plan Discharge Plan: Other (residential facility) Plan to discharge in: 48 Hours - Code Status/Comfort Care Code Status Assessed: Yes (Patient is full code) Physician Review Additional Text: Assessment Acute renal failure with hyperkalemia Urinary tract infection Dyspnea likely secondary to CHF COPD Hypertension Diabetes mellitus type 2 Chronic lymphedema Plan Acute renal failure with hyperkalemia: The patient's renal function has been slightly improved from yesterday. Continue with nephrology recommendations. Patient's potassium is now within normal limits. Patient will remain on telemetry for the duration of this hospitalization. Will closely monitor renal function and potassium levels. Will avoid NSAIDs/nephrotoxic drugs and contrast. Appreciate further input from nephrology. DVT prophylaxis with heparin 5000 units subcutaneous twice daily. Anticipate clinical improvement next 48-72 hr. After working with physical therapy, physical therapy believes patient benefit from intermediate facility at discharge. Will discuss this with the patient today. Patient also found to have multiple areas of lymphadenopathy both inguinal and axillary including right supraclavicular. This was evaluated via ultrasound. Radiologist states that this area would be amenable to ultrasound-guided core biopsy. Will discuss this with patient. The patient is amenable will plan for ultrasound-guided core biopsy for tomorrow. Urinary tract infection: Will continue with Rocephin IV 1 g once daily, will follow up with urine culture from the emergency department. Dyspnea likely secondary to CHF: Will diurese patient with Lasix IV. Will monitor patient's volume status and renal function closely in conjunction with nephrology. COPD: Will provide patient with oxygen as needed in addition to albuterol inhaler. Will obtain and continue patient's home medications as well. Hypertension: Will obtain and continue patient's home medication. Will adjust as needed. Due to patient's acute renal failure. Diabetes mellitus type 2: Patient we placed on a.c. HS Accu-Cheks and sliding scale insulin therapy at this time. Will continue patient's home medications as appropriate. Changes made may need to be made due to acute renal failure. Chronic lymphedema: Will continue patient's home care for chronic lymphedema. Critical Care: No Time Spent Managing Pts Care (In Minutes): 55
[2019-12-08] MEDS ORDERED: NA CHLORIDE 0.9% 250 ML ONE (17:22)
[2019-12-08] MEDS: FAMOTIDINE 20 MG/2 ML VIAL IV SCH (22:08)
[2019-12-08] MEDS: ENSURE HIGH PROTEIN 237 ML CAN PO SCH (22:11)
--- NOTE | 2019-12-08 22:13 | P.CNS ---
Date of Consult: 12/08/19 Reason for Consult: ADRIANO/ Hyperkalemia Requesting Physician: Tre Amin Primary Care Provider: Maryjane Garcia Chief Complaint: ARF, Hyperkalemia, UTI History of Present Illness: 79-year-old female with medical history including diabetes mellitus type 2, COPD, hypertension, CHF, chronic lymphedema presented the emergency department with a 2 day history of general weakness and urinary symptoms. During her evaluation in the emergency department patient was found to be in acute renal failure with hyperkalemia and have a urinary tract infection. ED provider wishes to admit patient for further evaluation and management this condition. 13:01 This 79 yrs old Female presents to ER via EMS with complaints of Weakness. win 13:01 The patient presents to the emergency department with weakness of the entire body, win generalized weakness. Onset: The symptoms/episode began/occurred 2 day(s) ago. Allergies adhesive Allergy (Verified 02/27/12 19:16) Rash meperidine HCl [From Demerol] Adverse Reaction (Verified 02/27/12 19:16) Itching Home medications list reviewed: Yes Home Medications: Furosemide [Lasix] 40 mg PO DAILY 02/27/12 Metformin HCl 500 mg PO DAILY 02/27/12 Fentanyl Patch [Duragesic Patch*] 50 mcg TD Q72H 08/01/12 Hydrocodone Bit/Acetaminophen [Hydrocodon-Acetaminophen 5-500] 1 each PO BID 08/01/12 Albuterol Inhaler [Ventolin Inhaler] 2 puff IH Q6H PRN 12/07/19 Docusate Sodium 100 mg PO BID 12/07/19 Fluticasone/Umeclidin/Vilanter [Trelegy Ellipta 100-62.5-25] 1 each IH DAILY 12/07/19 Loratadine/Pseudoephedrine [Claritin-D 24 Hour Tablet] 1 each PO DAILY 12/07/19 Magnesium Oxide [Magnesium] 250 mg PO DAILY 12/07/19 Montelukast [Singulair] 10 mg PO DAILY 12/07/19 Pregabalin [Lyrica] 75 mg PO BID 12/07/19 Ropinirole HCl 4 mg PO TID 12/07/19 Spironolactone [Aldactone] 25 mg PO DAILY 12/07/19 Tizanidine [Zanaflex] 4 mg PO Q8H 12/07/19 - Past Medical/Surgical History Diabetic: Yes -: Diabetes mellitus type 2 -: COPD -: Hypertension -: CHF -: History of breast cancer -: Right breast mastectomy Psychosocial/ Personal History: Patient lives at home with her . - Social History Smoking Status: Never smoker Alcohol use: No CD- Drugs: No Caffeine use: No Place of Residence: Home Review of Systems 10-point ROS is otherwise unremarkable General: Weakness, Malaise Respiratory: SOB with Excertion Cardiovascular: Edema Musculoskeletal: Back Pain Neurological: Weakness Physical Examination Temp Pulse Resp BP Pulse Ox 97.8 F 62 15 93/38 L 97 12/08/19 20:00 12/08/19 20:00 12/08/19 20:00 12/08/19 20:12/08/19 20:00 General: Alert, Oriented x3, Cooperative HEENT: Atraumatic, Mucous membr. moist/pink Neck: Supple Respiratory: Clear to auscultation bilaterally, Diminished Cardiovascular: Regular rate/rhythm, Edema Gastrointestinal: Soft and benign, Non-distended Musculoskeletal: No clubbing, No contractures Integumentary: No cyanosis, Skin lesion Neurological: Normal speech Blood work reviewed in the chart. Imagings Data: EXAM DESCRIPTION: CT - Stone Protocol - 12/07/2019 2:12 pm CLINICAL HISTORY: FLANK PAIN COMPARISON: No comparisons TECHNIQUE: Axial 5 mm thick images were obtained without oral or IV contrast. The [id number] spans the entirety of the system including uppermost abdomen and lung bases. All CT scans are performed using dose optimization technique as appropriate and may include automated exposure control or mA/KV adjustment according to patient size. FINDINGS: No hydronephrosis is present and no obstructing ureteral calculi. No suspicious renal masses. Isodense masses and pyelonephritis are not excluded on a stone protocol CT scan. No significant adrenal finding. Urinary bladder is fully contracted around a Person catheter. Imaged portions of the liver, spleen and pancreas show no suspicious findings on non-contrast imaging. Cholecystectomy clips are present. No biliary tree dilatation. Small hiatal hernia is present. No acute stomach finding. No dilated large or small bowel. A primary GI process is not suspected. A 4 centimeter periumbilical hernia is present containing fat. This is a minimal amount of congestion or edema. No free air or pneumatosis. Patient has fluid retention in the subcutaneous fatty tissues of the abdomen. Pelvic floor assessment is limited. There is substantial spray artifact from left hip prosthesis. Periaortic/ pericaval small nonspecific lymph nodes are present. Patient has significant bilateral inguinal lymphadenopathy worse on the right. There appears to be external iliac lymphadenopathy on the right that may be measures large is 5 cm x 3 cm. The spray artifact limits detail. Bony degenerative changes are present 50% compression fracture deformity of L4 is present but appears to be old. Degenerative changes are present L4 in the lumbar and lower thoracic spine. Small to moderate right pleural effusion partially imaged. Trace left pleural effusion. Bilateral lobe atelectasis present. IMPRESSION: Abnormal inguinal lymphadenopathy worse on the right with possible external iliac chain pelvic lymphadenopathy as well. Lymph nodes may all be reactive from a lower extremity infectious/ inflammatory process. Pathologic lymphadenopathy cannot be excluded. Isodense masses and pyelonephritis are not excluded on stone protocol technique.Overall exam is limited in the absence of IV contrast. No acute GI process seen. Bilateral pleural effusions more prominent on the right. Atelectasis also present. 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 FINDINGS: Lung volumes are low. Lung markings are further accentuated by large body habitus and portable technique. No dense consolidation in the mid or upper lung mann. Bilateral pleural effusions are present. Cardiomegaly is present with vascular engorgement. No pneumothorax. No acute bony abnormality seen. No acute aortic findings suspected. IMPRESSION: Mild CHF/volume overload pattern accentuated by exam limitations. 2 DIMENSIONAL ASSESSMENT: RIGHT ATRIUM: NORMAL LEFT ATRIUM: NORMAL RIGHT VENTRICLE: NORMAL LEFT VENTRICLE: NORMAL TRICUSPID VALVE: NORMAL MITRAL VALVE: NORMAL PULMONIC VALVE: NORMAL AORTIC VALVE: NORMAL PERICARDIAL EFFUSION: NONE AORTIC ROOT: NORMAL LEFT VENTRICULAR WALL MOTION: NORMAL DOPPLER/COLOR FLOW: NORMAL COMMENTS: NORMAL LEFT VENTRICULAR SIZE AND FUNCTION. MILD MITRAL ANNULAR CALCIFICATION. NO EFFUSION. NO WALL MOTION ABNORMALITY. Conclusions/Impression: A/ ADRIANO suspicious for CRS. Hyperkalemia Hypocalcemia CKD III with proteinuria HTN with CKD/ CHF. Diastolic CHF, A/C. DM II with CKD. Anemia in chronic illness. Acute cystitis. P/ Continue current POC and Medications. Furosemide as tolerated. May need to hold if hypotension. IVF bolus as needed. Kayexalate as ordered. Continue abx. Low sodium diet. No NSAIDs. AM labs. Daily weight. Thank you kindly for the consultation.
[2019-12-09] MEDS: TIZANIDINE 4 MG TABLET PO SCH ×3 (01:27→18:15)
[2019-12-09 04:23] LABS: Absolute Lymphocytes (CBC) 1.1 K/uL (0.7-4.9); Basophils % 1.3 % (0-1.3); Hematocrit 30.5 % (36.0-45.0); Lymphocytes % 9.6 % (15.3-44.8); RBC Red Blood Cell Count 3.72 M/uL (3.86-4.86)
[2019-12-09 04:27] LABS: Potassium 4.9 mmol/L (3.5-5.1); Uric Acid 13.1 mg/dL (2.6-6.0)
[2019-12-09] MEDS: INSULIN -REGULAR HUMAN 50 UNIT/0.5 ML ML SQ SCH ×4 (07:30→20:45)
[2019-12-09] MEDS: ROPINIROLE HCL 1 MG TAB PO SCH ×3 (08:26→20:46)
[2019-12-09] MEDS: MONTELUKAST 10 MG TAB PO SCH (08:26)
[2019-12-09] MEDS: CEFTRIAXONE/SWI 1gm 1 GM/10 ML SYR IVP SCH (08:26)
[2019-12-09] MEDS: ENSURE HIGH PROTEIN 237 ML CAN PO SCH ×2 (08:27→20:44)
[2019-12-09] MEDS: PREGABALIN 75 MG CAP PO SCH ×2 (08:27→20:45)
[2019-12-09] MEDS: MAGNESIUM OXIDE 400 MG TAB PO SCH (08:27)
[2019-12-09] MEDS: DOCUSATE NA 100 MG CAP PO SCH ×2 (08:27→20:44)
[2019-12-09] MEDS: FAMOTIDINE 20 MG/2 ML VIAL IV SCH ×2 (08:27→20:44)
[2019-12-09] MEDS: LORATADINE PO SCH (09:00)
[2019-12-09] MEDS: FUROSEMIDE 20 MG/ 2ML VIAL IV SCH ×2 (09:00→18:15)
[2019-12-09] MEDS: HEPARIN 5000 UNIT/ML 1 ML VIAL SQ SCH ×2 (09:00→20:44)
[2019-12-09] MEDS: HOME MED 1 EA UNK (Fluticasone/Umeclidin/Vilanter [Trelegy Ellipta 100-62.5-25] 1 EACH) IH SCH (09:00)
[2019-12-09] MEDS: PSEUDOEPHEDRINE PO SCH (09:00)
--- NOTE | 2019-12-09 10:01 | RAD REPORT ---
EXAM DESCRIPTION: US - Biopsy Lymph Node - 12/09/2019 9:08 am CLINICAL HISTORY: hx breast cancer Enlarged right axillary lymph nodes COMPARISON: AXILLA ONLY dated 12/07/2019; Stone Protocol dated 12/07/2019; Chest Single View dated 11/09 FINDINGS: Preoperative diagnosis: Right axillary lymphadenopathy. Post operative diagnosis: Same. Conscious Sedation: None Fluoroscopy time: None Contrast used: None Estimated blood loss: Minimal Specimens:18 gauge core specimens x4 The right axilla was prepped and draped in the usual sterile fashion. 1% lidocaine was infiltrated in to the subcutaneous tissues for local anesthesia. Real time ultrasound scanning of the right axilla d emonstrated several enlarged hypoechoic lymph nodes. Under ultrasound guidance, using a 18-gauge, 6 c m long, 2 cm throw core biopsy gun, 4 specimens were obtained of this lesion and sent to pathology fo r evaluation. There were no complications. IMPRESSION: Successful ultrasound-guided core biopsy enlarged right axillary lymph node.
[2019-12-09] MEDS: NA CHLORIDE 0.9% 250 ML IV PRN ×2 (12:24→13:43)
--- NOTE | 2019-12-09 13:19 | RAD REPORT ---
EXAM DESCRIPTION: RAD - Chest Single View - 12/09/2019 12:57 pm CLINICAL HISTORY: SOB COMPARISON: Portable December 06 TECHNIQUE: AP portable chest image was obtained 12/09/2019 12:57 pm . FINDINGS: Lung volumes are low. Heart, vasculature and lung markings are accentuated by shallow insp iration and low lung volumes. Lung markings are similar to perhaps fractionally improved from prior i maging. Interval change if any is minimal. Small right pleural effusion is still evident. Trachea is midline. No pneumothorax. No acute bony abnormality seen. No acute aortic findings suspected. IMPRESSION: CHF/volume overload findings are similar to fractionally improved from December 06.
--- NOTE | 2019-12-09 13:43 | P.PN ---
Subjective Date of Service: 12/09/19 Primary Care Provider: Maryjane Garcia Chief Complaint: ARF, Hyperkalemia, UTI Patient states she is feeling well but does report increased cough. <Rebel Hobbs - Last Filed: 12/09/19 13:38> Date of Service: 12/09/19 <Tre Amin - Last Filed: 12/09/19 18:13> Review of Systems General: Weakness Eyes: Unremarkable ENT: Unremarkable Respiratory: Cough, Shortness of Breath Cardiovascular: Edema Gastrointestinal: Unremarkable Genitourinary: Unremarkable Musculoskeletal: Unremarkable Integumentary: Unremarkable Lymphatics: Other (Chronic lymphedema) <Rebel Hobbs - Last Filed: 12/09/19 13:38> Physical Examination - Vital Signs Temperature: 97 F Blood Pressure: 90/60 Pulse: 63 Respirations: 20 Pulse Ox (%): 97 - Physical Exam General: Alert, In no apparent distress, Oriented x3 HEENT: Atraumatic, Normocephalic Neck: Supple Respiratory: Crackles/rales (Bibasilar) Cardiovascular: Normal pulses, Regular rate/rhythm, Normal S1 S2 Capillary refill: <2 Seconds Gastrointestinal: Normal bowel sounds, Soft and benign Musculoskeletal: No contractures, No erythema Integumentary: No breakdown, No significant lesion Neurological: Normal speech, Normal strength at 5/5 x4 extr, Normal tone - Studies Microbiology Data (last 24 hrs): 12/07/19 12:50 Catheterized Urine [place] Count - Final >100,000 CFU/ML. 12/07/19 12:50 Catheterized Urine - Final Escherichia Coli <Rebel Hobbs - Last Filed: 12/09/19 13:38> - Studies Microbiology Data (last 24 hrs): 12/07/19 12:50 Catheterized Urine [place] Count - Final >100,000 CFU/ML. 12/07/19 12:50 Catheterized Urine - Final Escherichia Coli <Tre Amin - Last Filed: 12/09/19 18:13> Assessment & Plan Discharge Plan: Home Plan to discharge in: 48 Hours - Code Status/Comfort Care Code Status Assessed: Yes (Patient is full code) Physician Review Additional Text: Assessment Acute renal failure with hyperkalemia Significant lymphadenopathy in the right axillary and right supraclavicular chains Urinary tract infection Dyspnea likely secondary to CHF COPD Hypertension Diabetes mellitus type 2 Chronic lymphedema Plan Acute renal failure with hyperkalemia: Patient's renal function has trended down slightly from yesterday. Continue with nephrology recommendations. Patient's potassium is now within normal limits. Patient will remain on telemetry for the duration of this hospitalization. Will closely monitor renal function and potassium levels. Will avoid NSAIDs/nephrotoxic drugs and contrast. Appreciate further input from nephrology. DVT prophylaxis with heparin 5000 units subcutaneous twice daily. Anticipate clinical improvement next 48-72 hr. After working with physical therapy, physical therapy believes patient benefit from halfway facility at discharge. Significant lymphadenopathy in the right axillary and right supraclavicular chains Patient has also now had an ultrasound-guided core biopsy of her right axillary lymph node. Awaiting pathology from this. Urinary tract infection: Will continue with Rocephin IV 1 g once daily, will follow up with urine culture from the emergency department. Dyspnea likely secondary to CHF: Patient complaining of some shortness of breath, chest x-ray shows mild improvement of pleural effusions. Patient has been diuresed with Lasix but blood pressure is on the low side. I have been using p.r.n. fluid boluses to maintain blood pressure the patient's urine output has now decreased significantly. Will discuss further with nephrology. Patient may require intensive care unit transfer if blood pressure does not improve and maintained with fluid boluses. Will continue to monitor closely. COPD: Will provide patient with oxygen as needed in addition to albuterol inhaler. Patient's home medications have also be continued. Pulmonology has been consulted as this is a previous patient and she is having worsening shortness of breath. Patient noted to have pleural effusion on chest x-ray. Patient's oxygen saturations within normal limits on oxygen at this time. Will continue to monitor closely. Hypertension: Will obtain and continue patient's home medication. Will adjust as needed. Due to patient's acute renal failure. Diabetes mellitus type 2: Patient we placed on a.c. HS Accu-Cheks and sliding scale insulin therapy at this time. Will continue patient's home medications as appropriate. Changes made may need to be made due to acute renal failure. Chronic lymphedema: Will continue patient's home care for chronic lymphedema. Critical Care: No Time Spent Managing Pts Care (In Minutes): 55 <Rebel Hobbs - Last Filed: 12/09/19 13:38> Physician Review Additional Text: Patient seen and examined. Case discussed at length with nurse practitioner. Agree with assessment, evaluation and plan of care. Also discuss with nephrology. Patient was given IV fluid bolus today due to low blood pressure. Patient with poor urinary output. Will continue monitor closely. If blood pressure continues to drop will need to consider transfer inpatient for IV Levophed rather than giving more IV fluid due to her history of diastolic CHF. Patient likely with acute on chronic diastolic CHF. Patient had biopsy of lymphadenopathy. Suspicious for breast cancer metastasis. Await findings. Physical therapy recommended skilled placement. Will discuss further with social director. <Tre Amin - Last Filed: 12/09/19 18:13>
[2019-12-09] MEDS: ALBUTEROL INHALER 60 PUFF/8 GM IH PRN (14:14)
[2019-12-09 15:35] LABS: Potassium 4.9 mmol/L (3.5-5.1)
--- NOTE | 2019-12-09 22:14 | P.PN ---
Date of Service: 12/09/19 Vital Signs Temp Pulse Resp BP Pulse Ox 97 F 60 19 110/70 93 12/09/19 16:00 12/09/19 20:41 12/09/19 20:41 12/09/19 20:41 12/09/19 16:00 Medications Acetaminophen (Tylenol -Extra Strength) 500 mg PO Q4HP PRN PRN Reason: TEMP > 100' F Stop: 01/06/20 18:07 Albuterol Sulfate (Ventolin Inhaler) 2 puff IH Q6H PRN PRN Reason: SHORTNESS OF BREATH Stop: 01/07/20 00:04 Last Admin: 12/09/19 14:14 Dose: 2 puff Documented by: Docusate Sodium (Colace Cap) 100 mg PO BID [facility] Stop: 01/07/20 09:01 Last Admin: 12/09/19 20:44 Dose: 100 mg Documented by: Famotidine (Pepcid) 20 mg IV BID [facility]; Protocol Stop: 01/07/20 21:01 Last Admin: 12/09/19 20:44 Dose: 20 mg Documented by: Fentanyl (Duragesic Patch) 50 mcg TD Q72H [facility] Stop: 01/07/20 02:01 Last Admin: 12/08/19 01:45 Dose: 50 mcg Documented by: Furosemide (Lasix) 20 mg IV BIDL [facility] Stop: 01/08/20 09:01 Last Admin: 12/09/19 18:15 Dose: 20 mg Documented by: Heparin Sodium (Porcine) (Heparin 5,000 Units/Ml) 5,000 unit SQ Q12HR [facility] Stop: 01/06/20 21:01 Last Admin: 12/09/19 20:44 Dose: 5,000 unit Documented by: Home Med (Fluticasone/Umeclidin/Vilanter [Trelegy Ellipta 100-62.5-25]) 1 each IH DAILY [facility] Stop: 01/07/20 09:01 Last Admin: 12/09/19 09:00 Dose: Not Given Documented by: Home Med (Loratadine/Pseudoephedrine [Claritin-D 24 Hour Tablet]) 1 each PO DAILY [facility] Stop: 01/07/20 09:01 Last Admin: 12/09/19 09:00 Dose: Not Given Documented by: Ceftriaxone Sodium/Sodium Chloride (Rocephin 1 Gm/10 Ml Swi Ivp) 1 gm in 10 mls @ 600 mls/hr IVP DAILY [facility]; Protocol Stop: 01/07/20 09:01 Last Admin: 12/09/19 08:26 Dose: 10 mls Documented by: Sodium Chloride (Sodium Chloride) 250 mls @ 999 mls/hr IV Q15M PRN PRN Reason: HYPOTENSION Stop: 01/07/20 17:13 Last Admin: 12/09/19 13:43 Dose: 250 mls Documented by: Insulin Human Regular (Novolin -R) 0 unit SQ ACHS [facility]; Protocol Stop: 01/06/20 18:07 Last Admin: 12/09/19 20:45 Dose: Not Given Documented by: Magnesium Oxide (Mag 0x Tab) 400 mg PO DAILY [facility] Stop: 01/07/20 09:01 Last Admin: 12/09/19 08:27 Dose: 400 mg Documented by: Montelukast Sodium (Singulair) 10 mg PO DAILY [facility] Stop: 01/07/20 09:01 Last Admin: 12/09/19 08:26 Dose: 10 mg Documented by: Nutritional Formula (Ensure High Protein) 237 ml PO BID [facility] Stop: 01/07/20 21:01 Last Admin: 12/09/19 20:44 Dose: 237 ml Documented by: Ondansetron HCl (Zofran) 4 mg IV Q6HP PRN PRN Reason: NAUSEA / VOMITING Stop: 01/06/20 18:07 Phenyleph/Shark Oil/Min Oil/Petrol (Formulation R) 1 appl NM BID PRN PRN Reason: HEMORRHOIDS Stop: 01/07/20 14:09 Pregabalin (Lyrica) 75 mg PO BID [facility] Stop: 01/07/20 09:01 Last Admin: 12/09/19 20:45 Dose: 75 mg Documented by: Ropinirole HCl (Requip) 4 mg PO TID [facility] Stop: 01/07/20 01:01 Last Admin: 12/09/19 20:46 Dose: 4 mg Documented by: Sodium Chloride (Normal Saline Flush) 10 ml IV BID [facility] Stop: 01/06/20 21:01 Last Admin: 12/09/19 20:46 Dose: 10 ml Documented by: Tizanidine HCl (Zanaflex) 4 mg PO Q8H [facility] Stop: 01/07/20 01:01 Last Admin: 12/09/19 18:15 Dose: 4 mg Documented by: Microbiology Results 12/07/19 12:50 Catheterized Urine [place] Count - Final >100,000 CFU/ML. 12/07/19 12:50 Catheterized Urine - Final Escherichia Coli Assessment/ Plan: Nephrology Worsening dyspnea today. Episodes of hypotension treated with IVF boluses. Poor urine output. No acute events overnight. Persistent hypotension overnight. Vitals, medications, blood work and imaging reviewed in the chart. General: Alert, Oriented x3, Cooperative HEENT: Atraumatic, Mucous membr. moist/pink Neck: Supple Respiratory: Clear to auscultation bilaterally, Diminished Cardiovascular: Regular rate/rhythm, Edema Gastrointestinal: Soft and benign, Non-distended Musculoskeletal: No clubbing, No contractures Integumentary: No cyanosis, Skin lesion Neurological: Normal speech Blood work reviewed in the chart. Imagings Data: EXAM DESCRIPTION: CT - Stone Protocol - 12/07/2019 2:12 pm CLINICAL HISTORY: FLANK PAIN COMPARISON: No comparisons TECHNIQUE: Axial 5 mm thick images were obtained without oral or IV contrast. The [id number] spans the entirety of the system including uppermost abdomen and lung bases. All CT scans are performed using dose optimization technique as appropriate and may include automated exposure control or mA/KV adjustment according to patient size. FINDINGS: No hydronephrosis is present and no obstructing ureteral calculi. No suspicious renal masses. Isodense masses and pyelonephritis are not excluded on a stone protocol CT scan. No significant adrenal finding. Urinary bladder is fully contracted around a Person catheter. Imaged portions of the liver, spleen and pancreas show no suspicious findings on non-contrast imaging. Cholecystectomy clips are present. No biliary tree dilatation. Small hiatal hernia is present. No acute stomach finding. No dilated large or small bowel. A primary GI process is not suspected. A 4 centimeter periumbilical hernia is present containing fat. This is a minimal amount of congestion or edema. No free air or pneumatosis. Patient has fluid retention in the subcutaneous fatty tissues of the abdomen. Pelvic floor assessment is limited. There is substantial spray artifact from left hip prosthesis. Periaortic/ pericaval small nonspecific lymph nodes are present. Patient has significant bilateral inguinal lymphadenopathy worse on the right. There appears to be external iliac lymphadenopathy on the right that may be measures large is 5 cm x 3 cm. The spray artifact limits detail. Bony degenerative changes are present 50% compression fracture deformity of L4 is present but appears to be old. Degenerative changes are present L4 in the lumbar and lower thoracic spine. Small to moderate right pleural effusion partially imaged. Trace left pleural effusion. Bilateral lobe atelectasis present. IMPRESSION: Abnormal inguinal lymphadenopathy worse on the right with possible external iliac chain pelvic lymphadenopathy as well. Lymph nodes may all be reactive from a lower extremity infectious/ inflammatory process. Pathologic lymphadenopathy cannot be excluded. Isodense masses and pyelonephritis are not excluded on stone protocol technique.Overall exam is limited in the absence of IV contrast. No acute GI process seen. Bilateral pleural effusions more prominent on the right. Atelectasis also present. EXAM DESCRIPTION: RAD - Chest Single View - 12/07/2019 1:20 pm CLINICAL HISTORY: Cough;NETBACKUP ADMIN COMPARISON: November 2017 TECHNIQUE: AP portable chest image was obtained 12/07/2019 1:20 pm . FINDINGS: Lung volumes are low. Lung markings are further accentuated by large body habitus and portable technique. No dense consolidation in the mid or upper lung mann. Bilateral pleural effusions are present. Cardiomegaly is present with vascular engorgement. No pneumothorax. No acute bony abnormality seen. No acute aortic findings suspected. IMPRESSION: Mild CHF/volume overload pattern accentuated by exam limitations. 2 DIMENSIONAL ASSESSMENT: RIGHT ATRIUM: NORMAL LEFT ATRIUM: NORMAL RIGHT VENTRICLE: NORMAL LEFT VENTRICLE: NORMAL TRICUSPID VALVE: NORMAL MITRAL VALVE: NORMAL PULMONIC VALVE: NORMAL AORTIC VALVE: NORMAL PERICARDIAL EFFUSION: NONE AORTIC ROOT: NORMAL LEFT VENTRICULAR WALL MOTION: NORMAL DOPPLER/COLOR FLOW: NORMAL COMMENTS: NORMAL LEFT VENTRICULAR SIZE AND FUNCTION. MILD MITRAL ANNULAR CALCIFICATION. NO EFFUSION. NO WALL MOTION ABNORMALITY. Conclusions/Impression: A/ ADRIANO suspicious for CRS. Hyperkalemia Hypocalcemia CKD III with proteinuria HTN with CKD/ CHF. Diastolic CHF, A/C. DM II with CKD. Anemia in chronic illness. Acute cystitis. P/ Continue current POC and Medications. Furosemide as tolerated. May need to hold if hypotension. IVF bolus as needed. Kayexalate as ordered. Continue abx. Low sodium diet. No NSAIDs. AM labs. Daily weight. Greater than 30min patient care. Consider transfer to the ICU if worsening hypotension for pressor therapy. Case reviewed with Dr. Amin.
[2019-12-10] MEDS: TIZANIDINE 4 MG TABLET PO SCH ×4 (00:41→20:53)
[2019-12-10] MEDS: NA CHLORIDE 0.9% 250 ML IV PRN ×2 (03:37→04:31)
[2019-12-10] MEDS: INSULIN -REGULAR HUMAN 50 UNIT/0.5 ML ML SQ SCH ×4 (07:30→21:00)
[2019-12-10] MEDS: FUROSEMIDE 20 MG/ 2ML VIAL IV SCH (07:48)
[2019-12-10] MEDS: FAMOTIDINE 20 MG/2 ML VIAL IV SCH ×2 (07:49→20:53)
[2019-12-10] MEDS: DOCUSATE NA 100 MG CAP PO SCH ×2 (07:49→20:53)
[2019-12-10] MEDS: CEFTRIAXONE/SWI 1gm 1 GM/10 ML SYR IVP SCH (07:49)
[2019-12-10] MEDS: PREGABALIN 75 MG CAP PO SCH (07:49)
[2019-12-10] MEDS: MAGNESIUM OXIDE 400 MG TAB PO SCH (07:51)
[2019-12-10] MEDS: HEPARIN 5000 UNIT/ML 1 ML VIAL SQ SCH ×2 (07:51→20:53)
[2019-12-10] MEDS: MONTELUKAST 10 MG TAB PO SCH (07:51)
[2019-12-10] MEDS: HOME MED 1 EA UNK (Fluticasone/Umeclidin/Vilanter [Trelegy Ellipta 100-62.5-25] 1 EACH) IH SCH (07:52)
[2019-12-10] MEDS: PSEUDOEPHEDRINE PO SCH (07:52)
[2019-12-10] MEDS: ENSURE HIGH PROTEIN 237 ML CAN PO SCH ×2 (07:52→20:54)
[2019-12-10] MEDS: LORATADINE PO SCH (07:52)
--- NOTE | 2019-12-10 08:02 | P.CNS ---
Date of Consult: 12/10/19 Primary Care Provider: Maryjane Garcia Chief Complaint: ARF, Hyperkalemia, UTI History of Present Illness: Patient is 79 years of age admitted with a worsening dyspnea on exertion patient does take an inhaler which does help her the triple underlying problems including chronic lymphedema patient also has worsening renal failure probably underlying diastolic dysfunction patient is currently using her own CPAP Allergies adhesive Allergy (Verified 02/27/12 19:16) Rash meperidine HCl [From Demerol] Adverse Reaction (Verified 02/27/12 19:16) Itching Home Medications: Furosemide [Lasix] 40 mg PO DAILY 02/27/12 Metformin HCl 500 mg PO DAILY 02/27/12 Fentanyl Patch [Duragesic Patch*] 50 mcg TD Q72H 08/01/12 Hydrocodone Bit/Acetaminophen [Hydrocodon-Acetaminophen 5-500] 1 each PO BID 08/01/12 Albuterol Inhaler [Ventolin Inhaler] 2 puff IH Q6H PRN 12/07/19 Docusate Sodium 100 mg PO BID 12/07/19 Fluticasone/Umeclidin/Vilanter [Trelegy Ellipta 100-62.5-25] 1 each IH DAILY 12/07/19 Loratadine/Pseudoephedrine [Claritin-D 24 Hour Tablet] 1 each PO DAILY 12/07/19 Magnesium Oxide [Magnesium] 250 mg PO DAILY 12/07/19 Montelukast [Singulair] 10 mg PO DAILY 12/07/19 Pregabalin [Lyrica] 75 mg PO BID 12/07/19 Ropinirole HCl 4 mg PO TID 12/07/19 Spironolactone [Aldactone] 25 mg PO DAILY 12/07/19 Tizanidine [Zanaflex] 4 mg PO Q8H 12/07/19 - Past Medical/Surgical History Diabetic: Yes -: Diabetes mellitus type 2 -: COPD -: Hypertension -: CHF -: History of breast cancer -: Sleeve apnea -: Right breast mastectomy Psychosocial/ Personal History: Patient lives at home with her . - Social History Smoking Status: Never smoker Alcohol use: No CD- Drugs: No Caffeine use: No Place of Residence: Home Review of Systems General: Weakness Respiratory: Shortness of Breath Cardiovascular: Edema Physical Examination Temp Pulse Resp BP Pulse Ox 96.9 F 60 18 102/60 93 12/10/19 03:20 12/10/19 04:55 12/10/19 04:55 12/10/19 04:55 12/10/19 04:55 General: Alert, Oriented x3, Mild distress Cardiovascular: Normal S1 S2 Gastrointestinal: Normal bowel sounds, Soft and benign - Problems (1) Respiratory failure Current Visit: Yes Status: Acute Plan: Patient is 79 years of age admitted with worsening dyspnea worsening renal function patient is hypoxic hypercapnic with a mild underlying metabolic acidosis mildly anemic patient is a normal left ventricular function patient has cardiomegaly interstitial changes most likely volume overload patient also recently as some lymph node biopsies done from the right axilla E coli isolated in the urine seen by Nephrology currently stable patient's BNP is significantly elevated increase dose of Lasix patient is on Augmentin Qualifiers: Chronicity: acute on chronic
[2019-12-10] MEDS: ALBUTEROL INHALER 60 PUFF/8 GM IH PRN (08:18)
[2019-12-10] MEDS: ROPINIROLE HCL 1 MG TAB PO SCH ×3 (08:33→20:53)
[2019-12-10 09:56] LABS: Potassium 4.8 mmol/L (3.5-5.1)
[2019-12-10 09:58] LABS: Absolute Lymphocytes (CBC) 1.2 K/uL (0.7-4.9); Basophils % 0.8 % (0-1.3); Hematocrit 29.6 % (36.0-45.0); Lymphocytes % 9.8 % (15.3-44.8); RBC Red Blood Cell Count 3.59 M/uL (3.86-4.86)
[2019-12-10 10:31] LABS: Anisocytosis SLIGHT; Blood Morphology Comment NOTED (NOT SEEN); Platelet Estimate ADEQ
[2019-12-10 10:34] LABS: Arterial Blood Carboxyhemoglob 1.4 % (0-1.5); Blood Gas Oxyhemoglobin 89.9 % (94-97); Blood O2 Saturation 92.1 % (92-98.5)
[2019-12-10] MEDS ORDERED: TIZANIDINE 4 MG TABLET PO SCH (11:04)
[2019-12-10] MEDS ORDERED: FUROSEMIDE 40 MG/4 ML VIAL IV STA (12:24)
[2019-12-10] MEDS: FUROSEMIDE 40 MG/4 ML VIAL IV SCH (17:14)
--- NOTE | 2019-12-10 17:28 | P.PN ---
Subjective Date of Service: 12/10/19 Primary Care Provider: Maryjane Garcia Chief Complaint: ARF, Hyperkalemia, UTI Subjective: Doing well Physical Examination - Vital Signs Temperature: 97 F Blood Pressure: 106/52 Pulse: 61 Respirations: 20 Pulse Ox (%): 94 - Physical Exam General: Alert HEENT: Atraumatic Neck: Supple Respiratory: Other (Poor inspiration expiration.) Cardiovascular: Normal pulses, Regular rate/rhythm Gastrointestinal: Soft and benign, Non-distended, No masses, No rebound, No guarding Integumentary: No warmth, No cyanosis, Tenderness/swelling (Edema to the lower extremities bilateral) - Studies Medications List Reviewed: Yes Assessment & Plan Discharge Plan: Other (snf facility) Plan to discharge in: 48 Hours Physician Review Additional Text: Assessment Acute renal failure with hyperkalemia Significant lymphadenopathy in the right axillary and right supraclavicular chains Urinary tract infection Dyspnea likely secondary to CHF COPD Hypertension Diabetes mellitus type 2 Chronic lymphedema Plan Acute renal failure with hyperkalemia: Continue to monitor closely. If blood pressure drops will need to consider sending patient to the ICU with IV Levophed. Case discussed at length with nephrology yesterday. Continue to monitor closely. Will wait further recommendations by nephrology. Significant lymphadenopathy in the right axillary and right supraclavicular chains Patient stable this time. Await findings from pathology. Urinary tract infection: Will continue with Rocephin IV 1 g once daily, will follow up with urine culture from the emergency department. Dyspnea likely secondary to CHF: Recommend no further fluid boluses as recommended by nephrology yesterday. COPD: Continue medication. Hypertension: Will obtain and continue patient's home medication. Will adjust as needed. Due to patient's acute renal failure. Diabetes mellitus type 2: Patient we placed on a.c. HS Accu-Cheks and sliding scale insulin therapy at this time. Will continue patient's home medications as appropriate. Changes made may need to be made due to acute renal failure. Chronic lymphedema: Will continue patient's home care for chronic lymphedema. Time Spent Managing Pts Care (In Minutes): 55
--- NOTE | 2019-12-10 20:51 | P.PN ---
Date of Service: 12/10/19 Vital Signs Temp Pulse Resp BP Pulse Ox 97 F 61 20 106/52 L 94 12/10/19 17:30 12/10/19 17:30 12/10/19 17:30 12/10/19 17:30 12/10/19 17:30 Medications Acetaminophen (Tylenol -Extra Strength) 500 mg PO Q4HP PRN PRN Reason: TEMP > 100' F Stop: 01/06/20 18:07 Albuterol Sulfate (Ventolin Inhaler) 2 puff IH Q6H PRN PRN Reason: SHORTNESS OF BREATH Stop: 01/07/20 00:04 Last Admin: 12/10/19 08:18 Dose: 2 puff Documented by: Amoxicillin/Clavulanate Potassium (Augmentin 500-125 Mg Tab) 500 mg PO BID [facility] Stop: 01/09/20 21:01 Calcitriol (Rocaltrol) 0.5 mcg PO DAILY [facility] Stop: 01/10/20 09:01 Cholecalciferol (Vitamin D 5,000 Iu Cap) 5,000 unit PO DAILY [facility] Stop: 01/10/20 09:01 Docusate Sodium (Colace Cap) 100 mg PO BID [facility] Stop: 01/07/20 09:01 Last Admin: 12/10/19 07:49 Dose: 100 mg Documented by: Famotidine (Pepcid) 20 mg IV BID [facility]; Protocol Stop: 01/07/20 21:01 Last Admin: 12/10/19 07:49 Dose: 20 mg Documented by: Fentanyl (Duragesic Patch) 50 mcg TD Q72H [facility] Stop: 01/07/20 02:01 Last Admin: 12/08/19 01:45 Dose: 50 mcg Documented by: Furosemide (Lasix) 40 mg IV BIDL [facility] Stop: 01/09/20 17:01 Last Admin: 12/10/19 17:14 Dose: 40 mg Documented by: Heparin Sodium (Porcine) (Heparin 5,000 Units/Ml) 5,000 unit SQ Q12HR [facility] Stop: 01/06/20 21:01 Last Admin: 12/10/19 07:51 Dose: 5,000 unit Documented by: Home Med (Fluticasone/Umeclidin/Vilanter [Trelegy Ellipta 100-62.5-25]) 1 each IH DAILY [facility] Stop: 01/07/20 09:01 Last Admin: 12/10/19 07:52 Dose: Not Given Documented by: Home Med (Loratadine/Pseudoephedrine [Claritin-D 24 Hour Tablet]) 1 each PO DAILY [facility] Stop: 01/07/20 09:01 Last Admin: 12/10/19 07:52 Dose: Not Given Documented by: Insulin Human Regular (Novolin -R) 0 unit SQ ACHS [facility]; Protocol Stop: 01/06/20 18:07 Last Admin: 12/10/19 16:20 Dose: Not Given Documented by: Magnesium Oxide (Mag 0x Tab) 400 mg PO DAILY [facility] Stop: 01/07/20 09:01 Last Admin: 12/10/19 07:51 Dose: 400 mg Documented by: Montelukast Sodium (Singulair) 10 mg PO DAILY [facility] Stop: 01/07/20 09:01 Last Admin: 12/10/19 07:51 Dose: 10 mg Documented by: Nutritional Formula (Ensure High Protein) 237 ml PO BID [facility] Stop: 01/07/20 21:01 Last Admin: 12/10/19 07:52 Dose: 237 ml Documented by: Ondansetron HCl (Zofran) 4 mg IV Q6HP PRN PRN Reason: NAUSEA / VOMITING Stop: 01/06/20 18:07 Phenyleph/Shark Oil/Min Oil/Petrol (Formulation R) 1 appl [place] BID PRN PRN Reason: HEMORRHOIDS Stop: 01/07/20 14:09 Pregabalin (Lyrica) 50 mg PO DAILY [facility] Stop: 01/10/20 09:01 Ropinirole HCl (Requip) 1 mg PO TID [facility] Stop: 01/09/20 14:01 Last Admin: 12/10/19 13:15 Dose: 1 mg Documented by: Sodium Chloride (Normal Saline Flush) 10 ml IV BID [facility] Stop: 01/06/20 21:01 Last Admin: 12/10/19 07:50 Dose: 10 ml Documented by: Tizanidine HCl (Zanaflex) 2 mg PO TID [facility] Stop: 01/09/20 14:01 Last Admin: 12/10/19 13:15 Dose: 2 mg Documented by: Microbiology Results 12/07/19 12:50 Catheterized Urine [place] Count - Final >100,000 CFU/ML. 12/07/19 12:50 Catheterized Urine - Final Escherichia Coli Assessment/ Plan: Nephrology Feeling better today with more strength. CPS stable without CP. SOB controlled on CPAP. No acute events overnight. Vitals, medications, blood work and imaging reviewed in the chart. General: Alert, Oriented x3, Cooperative HEENT: Atraumatic, Mucous membr. moist/pink Neck: Supple Respiratory: Clear to auscultation bilaterally, Diminished Cardiovascular: Regular rate/rhythm, Edema Gastrointestinal: Soft and benign, Non-distended Musculoskeletal: No clubbing, No contractures Integumentary: No cyanosis, Skin lesion Neurological: Normal speech Blood work reviewed in the chart. Imagings Data: EXAM DESCRIPTION: CT - Stone Protocol - 12/07/2019 2:12 pm CLINICAL HISTORY: FLANK PAIN COMPARISON: No comparisons TECHNIQUE: Axial 5 mm thick images were obtained without oral or IV contrast. The [id number] spans the entirety of the system including uppermost abdomen and lung bases. All CT scans are performed using dose optimization technique as appropriate and may include automated exposure control or mA/KV adjustment according to patient size. FINDINGS: No hydronephrosis is present and no obstructing ureteral calculi. No suspicious renal masses. Isodense masses and pyelonephritis are not excluded on a stone protocol CT scan. No significant adrenal finding. Urinary bladder is fully contracted around a Person catheter. Imaged portions of the liver, spleen and pancreas show no suspicious findings on non-contrast imaging. Cholecystectomy clips are present. No biliary tree dilatation. Small hiatal hernia is present. No acute stomach finding. No dilated large or s mall bowel. A primary GI process is not suspected. A 4 centimeter periumbilical hernia is present containing fat. This is a minimal amount of congestion or edema. No free air or pneumatosis. Patient has fluid retention in the subcutaneous fatty tissues of the abdomen. Pelvic floor assessment is limited. There is substantial spray artifact from left hip prosthesis. Periaortic/ pericaval small nonspecific lymph nodes are present. Patient has significant bilateral inguinal lymphadenopathy worse on the right. There appears to be external iliac lymphadenopathy on the right that may be measures large is 5 cm x 3 cm. The spray artifact limits detail. Bony degenerative changes are present 50% compression fracture deformity of L4 is present but appears to be old. Degenerative changes are present L4 in the lumbar and lower thoracic spine. Small to moderate right pleural effusion partially imaged. Trace left pleural effusion. Bilateral lobe atelectasis present. IMPRESSION: Abnormal inguinal lymphadenopathy worse on the right with possible external iliac chain pelvic lymphadenopathy as well. Lymph nodes may all be reactive from a lower extremity infectious/ inflammatory process. Pathologic lymphadenopathy cannot be excluded. Isodense masses and pyelonephritis are not excluded on stone protocol technique.Overall exam is limited in the absence of IV contrast. No acute GI process seen. Bilateral pleural effusions more prominent on the right. Atelectasis also present. 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 FINDINGS: Lung volumes are low. Lung markings are further accentuated by large body habitus and portable technique. No dense consolidation in the mid or upper lung mann. Bilateral pleural effusions are present. Cardiomegaly is present with vascular engorgement. No pneumothorax. No acute bony abnormality seen. No acute aortic findings suspected. IMPRESSION: Mild CHF/volume overload pattern accentuated by exam limitations. 2 DIMENSIONAL ASSESSMENT: RIGHT ATRIUM: NORMAL LEFT ATRIUM: NORMAL RIGHT VENTRICLE: NORMAL LEFT VENTRICLE: NORMAL TRICUSPID VALVE: NORMAL MITRAL VALVE: NORMAL PULMONIC VALVE: NORMAL AORTIC VALVE: NORMAL PERICARDIAL EFFUSION: NONE AORTIC ROOT: NORMAL LEFT VENTRICULAR WALL MOTION: NORMAL DOPPLER/COLOR FLOW: NORMAL COMMENTS: NORMAL LEFT VENTRICULAR SIZE AND FUNCTION. MILD MITRAL ANNULAR CALCIFICATION. NO EFFUSION. NO WALL MOTION ABNORMALITY. Conclusions/Impression: A/ ADRIANO suspicious for CRS. Hyperkalemia Hypocalcemia CKD III with proteinuria HTN with CKD/ CHF. Diastolic CHF, A/C. DM II with CKD. Anemia in chronic illness. Acute cystitis. P/ Continue current POC and Medications. Continue furosemide as tolerated. May need to hold if hypotension. Continue abx. Low sodium diet. LN biopsy pending. No NSAIDs. AM labs. Daily weight.
[2019-12-10] MEDS: AMOX/K CLAV 500 MG TAB PO SCH (20:54)
[2019-12-10] MEDS ORDERED: PREGABALIN 75 MG CAP PO SCH (21:00)
[2019-12-10] MEDS ORDERED: DOCUSATE NA 100 MG CAP PO SCH (21:00)
[2019-12-10 21:26] LABS: Immunoglobulin A 292 mg/dL (70-320); Immunoglobulin G 777 mg/dL (600-1540); Immunoglobulin M 165 mg/dL (50-300)
[2019-12-11 01:03] LABS: Urine Appearance CLOUDY; Urine Bilirubin NEGATIVE (NEG); Urine Blood 3+ (NEG); Urine Color YELLOW; Urine Glucose NEGATIVE (NEG); Urine Protein 2+ (NEG); Urine Specific Gravity 1.015 (1.005-1.030); Urine Urobilinogen 0.2 mg/dL (0.2-1.0); Urine pH 5.5 (5.0-7.0)
[2019-12-11 01:30] LABS: Urine Amorphous Sediment 1+ /HPF (NONE SEEN); Urine Bacteria >50 /HPF (<20); Urine Culture Reflex Order REFLEXED; Urine Mucus 1+ /HPF (NONE SEEN); Urine RBC >50 /HPF (NONE SEEN)
[2019-12-11] MEDS: FENTANYL 25 MCG/PATCH TD SCH (03:18)
[2019-12-11 06:14] LABS: ALT/SGPT 11 U/L (12-78); AST/SGOT 6 U/L (15-37); Albumin 2.5 g/dL (3.4-5.0); Alkaline Phosphatase 108 U/L (45-117); BUN Blood Urea Nitrogen 60 mg/dL (7-18); Bicarbonate 23 mmol/L (21-32); Bilirubin Direct < 0.1 mg/dL (0-0.2); Bilirubin Total 0.2 mg/dL (0.2-1.0); Glucose Level 106 mg/dL (74-106); Magnesium 2.3 mg/dL (1.8-2.4); Potassium 4.9 mmol/L (3.5-5.1); Protein, Total 6.6 g/dL (6.4-8.2); Sodium Level 139 mmol/L (136-145); Uric Acid 12.8 mg/dL (2.6-6.0)
[2019-12-11 06:41] LABS: Absolute Lymphocytes (CBC) 1.2 K/uL (0.7-4.9); Basophils % 0.3 % (0-1.3); Hematocrit 36.9 % (36.0-45.0); Lymphocytes % 7.8 % (15.3-44.8); MPV 9.4 fL (7.6-11.3); RBC Red Blood Cell Count 4.44 M/uL (3.86-4.86)
[2019-12-11] MEDS: INSULIN -REGULAR HUMAN 50 UNIT/0.5 ML ML SQ SCH ×4 (07:30→20:33)
[2019-12-11] MEDS: PSEUDOEPHEDRINE PO SCH (09:00)
[2019-12-11] MEDS: LORATADINE PO SCH (09:00)
[2019-12-11] MEDS: HOME MED 1 EA UNK (Fluticasone/Umeclidin/Vilanter [Trelegy Ellipta 100-62.5-25] 1 EACH) IH SCH (09:00)
[2019-12-11] MEDS: HEPARIN 5000 UNIT/ML 1 ML VIAL SQ SCH ×2 (09:23→20:15)
[2019-12-11] MEDS: DOCUSATE NA 100 MG CAP PO SCH ×2 (09:24→20:14)
[2019-12-11] MEDS: AMOX/K CLAV 500 MG TAB PO SCH ×2 (09:24→20:14)
[2019-12-11] MEDS: CALCITROL 0.25 MCG CAP PO SCH (09:24)
[2019-12-11] MEDS: FUROSEMIDE 40 MG/4 ML VIAL IV SCH ×3 (09:24→21:47)
[2019-12-11] MEDS: MAGNESIUM OXIDE 400 MG TAB PO SCH (09:24)
[2019-12-11] MEDS: ROPINIROLE HCL 1 MG TAB PO SCH ×3 (09:24→20:14)
[2019-12-11] MEDS: MONTELUKAST 10 MG TAB PO SCH (09:25)
[2019-12-11] MEDS: VITAMIN D 5,000 UNIT CAP PO SCH (09:25)
[2019-12-11] MEDS: PREGABALIN 50 MG CAP PO SCH (09:25)
[2019-12-11] MEDS: TIZANIDINE 4 MG TABLET PO SCH ×3 (09:25→20:14)
[2019-12-11] MEDS: FAMOTIDINE 20 MG/2 ML VIAL IV SCH ×2 (09:25→20:16)
[2019-12-11] MEDS: ENSURE HIGH PROTEIN 237 ML CAN PO SCH ×2 (09:27→20:15)
--- NOTE | 2019-12-11 14:57 | P.PN ---
Subjective Date of Service: 12/11/19 Primary Care Provider: Maryjane Garcia Chief Complaint: ARF, Hyperkalemia, UTI Subjective: Other (Patient appears in better mood today. Patient appears stable. Blood pressure improved.) Physical Examination - Vital Signs Temperature: 97.3 F Blood Pressure: 150/69 Pulse: 61 Respirations: 20 Pulse Ox (%): 91 - Physical Exam General: Alert, In no apparent distress, Oriented x3, Cooperative HEENT: Atraumatic Neck: Supple Respiratory: Diminished (To the bases bilateral), Other (Patient with CPAP in place) Cardiovascular: Normal pulses, Regular rate/rhythm Gastrointestinal: Normal bowel sounds, No rebound, No guarding, Other (For bid obesity) Integumentary: Other (Chronic lymphedema) Neurological: Normal speech, Normal strength at 5/5 x4 extr, Normal tone - Studies Medications List Reviewed: Yes Assessment & Plan Discharge Plan: Home Physician Review Additional Text: Assessment Acute renal failure with hyperkalemia Significant lymphadenopathy in the right axillary and right supraclavicular chains Urinary tract infection, urine culture plus for E coli Dyspnea likely secondary to CHF COPD Hypertension Diabetes mellitus type 2 Chronic lymphedema Depression with anxiety Plan Acute renal failure with hyperkalemia: Renal function remained stable. Spoke with pulmonology to evaluate her shortness of breath. Shortness of breath related to diastolic CHF. Patient will get IV Lasix as recommended by pulmonology. Continue to monitor urinary output. Will discuss further with nephrology. I will be out of town but pulmonology will cover the hospitalist service. Continue physical therapy. Patient prefers to go home at discharge with home health. Spoke with director of social work to help arrange this. This will likely occurred likely as early as Saturday. I will return at that time. Significant lymphadenopathy in the right axillary and right supraclavicular chains: Await biopsy report. If abnormal will discuss with Oncology with options. Urinary tract infection, urine culture positive for E coli: Will continue with Rocephin IV 1 g once daily, will follow up with urine culture from the emergency department. Dyspnea secondary to acute on chronic diastolic CHF: Pulmonology recommends diuresis. Continue IV Lasix. Monitor urinary output. Urine output improved. Renal function stable. Will also discuss with nephrology. COPD: Continue medication. Continue with pulmonology recommendations Hypertension: Will monitor closely. IV medication provided as needed. Diabetes mellitus type 2: Monitor accuchecks. Continue sliding scale. Chronic lymphedema: Continue with medication Depression with anxiety: Will provide medication for anxiety. Time Spent Managing Pts Care (In Minutes): 55
--- NOTE | 2019-12-11 15:59 | P.PN ---
Date of Service: 12/11/19 Vital Signs Temp Pulse Resp BP Pulse Ox 97.3 F 61 20 150/69 H 91 12/11/19 14:57 12/11/19 14:57 12/11/19 14:57 12/11/19 14:57 12/11/19 14:57 Medications Acetaminophen (Tylenol -Extra Strength) 500 mg PO Q4HP PRN PRN Reason: TEMP > 100' F Stop: 01/06/20 18:07 Albuterol Sulfate (Ventolin Inhaler) 2 puff IH Q6H PRN PRN Reason: SHORTNESS OF BREATH Stop: 01/07/20 00:04 Last Admin: 12/10/19 08:18 Dose: 2 puff Documented by: Amoxicillin/Clavulanate Potassium (Augmentin 500-125 Mg Tab) 500 mg PO BID [facility] Stop: 01/09/20 21:01 Last Admin: 12/11/19 09:24 Dose: 500 mg Documented by: Calcitriol (Rocaltrol) 0.5 mcg PO DAILY [facility] Stop: 01/10/20 09:01 Last Admin: 12/11/19 09:24 Dose: 0.5 mcg Documented by: Cholecalciferol (Vitamin D 5,000 Iu Cap) 5,000 unit PO DAILY [facility] Stop: 01/10/20 09:01 Last Admin: 12/11/19 09:25 Dose: 5,000 unit Documented by: Docusate Sodium (Colace Cap) 100 mg PO BID [facility] Stop: 01/07/20 09:01 Last Admin: 12/11/19 09:24 Dose: 100 mg Documented by: Famotidine (Pepcid) 20 mg IV BID [facility]; Protocol Stop: 01/07/20 21:01 Last Admin: 12/11/19 09:25 Dose: 20 mg Documented by: Fentanyl (Duragesic Patch) 50 mcg TD Q72H [facility] Stop: 01/07/20 02:01 Last Admin: 12/11/19 03:18 Dose: 50 mcg Documented by: Furosemide (Lasix) 40 mg IV BIDL [facility] Stop: 01/09/20 17:01 Last Admin: 12/11/19 09:24 Dose: 40 mg Documented by: Heparin Sodium (Porcine) (Heparin 5,000 Units/Ml) 5,000 unit SQ Q12HR [facility] Stop: 01/06/20 21:01 Last Admin: 12/11/19 09:23 Dose: 5,000 unit Documented by: Home Med (Fluticasone/Umeclidin/Vilanter [Trelegy Ellipta 100-62.5-25]) 1 each IH DAILY [facility] Stop: 01/07/20 09:01 Last Admin: 12/11/19 09:00 Dose: Not Given Documented by: Home Med (Loratadine/Pseudoephedrine [Claritin-D 24 Hour Tablet]) 1 each PO DAILY [facility] Stop: 01/07/20 09:01 Last Admin: 12/11/19 09:00 Dose: Not Given Documented by: Insulin Human Regular (Novolin -R) 0 unit SQ ACHS [facility]; Protocol Stop: 01/06/20 18:07 Last Admin: 12/11/19 11:30 Dose: Not Given Documented by: Lorazepam (Ativan) 0.25 mg PO BID PRN PRN Reason: ANXIETY Stop: 01/10/20 14:51 Magnesium Oxide (Mag 0x Tab) 400 mg PO DAILY [facility] Stop: 01/07/20 09:01 Last Admin: 12/11/19 09:24 Dose: 400 mg Documented by: Montelukast Sodium (Singulair) 10 mg PO DAILY [facility] Stop: 01/07/20 09:01 Last Admin: 12/11/19 09:25 Dose: 10 mg Documented by: Nutritional Formula (Ensure High Protein) 237 ml PO BID [facility] Stop: 01/07/20 21:01 Last Admin: 12/11/19 09:27 Dose: 237 ml Documented by: Ondansetron HCl (Zofran) 4 mg IV Q6HP PRN PRN Reason: NAUSEA / VOMITING Stop: 01/06/20 18:07 Phenyleph/Shark Oil/Min Oil/Petrol (Formulation R) 1 appl [place] BID PRN PRN Reason: HEMORRHOIDS Stop: 01/07/20 14:09 Pregabalin (Lyrica) 50 mg PO DAILY [facility] Stop: 01/10/20 09:01 Last Admin: 12/11/19 09:25 Dose: 50 mg Documented by: Ropinirole HCl (Requip) 1 mg PO TID [facility] Stop: 01/09/20 14:01 Last Admin: 12/11/19 13:07 Dose: 1 mg Documented by: Sodium Chloride (Normal Saline Flush) 10 ml IV BID [facility] Stop: 01/06/20 21:01 Last Admin: 12/11/19 09:25 Dose: 10 ml Documented by: Tizanidine HCl (Zanaflex) 2 mg PO TID [facility] Stop: 01/09/20 14:01 Last Admin: 12/11/19 13:06 Dose: 2 mg Documented by: Microbiology Results 12/07/19 12:50 Catheterized Urine [place] Count - Final >100,000 CFU/ML. 12/07/19 12:50 Catheterized Urine - Final Escherichia Coli Assessment/ Plan: Nephrology Resting comfortably in bed. CPS stable without CP. SOB controlled on CPAP. No acute events overnight. Vitals, medications, blood work and imaging reviewed in the chart. General: Alert, Oriented x3, Cooperative HEENT: Atraumatic, Mucous membr. moist/pink Neck: Supple Respiratory: Clear to auscultation bilaterally, Diminished Cardiovascular: Regular rate/rhythm, Edema Gastrointestinal: Soft and benign, Non-distended Musculoskeletal: No clubbing, No contractures Integumentary: No cyanosis, Skin lesion Neurological: Normal speech Blood work reviewed in the chart. Imagings Data: EXAM DESCRIPTION: CT - Stone Protocol - 12/07/2019 2:12 pm CLINICAL HISTORY: FLANK PAIN COMPARISON: No comparisons TECHNIQUE: Axial 5 mm thick images were obtained without oral or IV contrast. The [id number] spans the entirety of the system including uppermost abd omen and lung bases. All CT scans are performed using dose optimization technique as appropriate and may include automated exposure control or mA/KV adjustment according to patient size. FINDINGS: No hydronephrosis is present and no obstructing ureteral calculi. No suspicious renal masses. Isodense masses and pyelonephritis are not excluded on a stone protocol CT scan. No significant adrenal finding. Urinary bladder is fully contracted around a Person catheter. Imaged portions of the liver, spleen and pancreas show no suspicious findings on non-contrast imaging. Cholecystectomy clips are present. No biliary tree dilatation. Small hiatal hernia is present. No acute stomach finding. No dilated large or small bowel. A primary GI process is not suspected. A 4 centimeter periumbilical hernia is present containing fat. This is a minimal amount of congestion or edema. No free air or pneumatosis. Patient has fluid retention in the subcutaneous fatty tissues of the abdomen. Pelvic floor assessment is limited. There is substantial spray artifact from left hip prosthesis. Periaortic/ pericaval small nonspecific lymph nodes are present. Patient has significant bilateral inguinal lymphadenopathy worse on the right. There appears to be external iliac lymphadenopathy on the right that may be measures large is 5 cm x 3 cm. The spray artifact limits detail. Bony degenerative changes are present 50% compression fracture deformity of L4 is present but appears to be old. Degenerative changes are present L4 in the lumbar and lower thoracic spine. Small to moderate right pleural effusion partially imaged. Trace left pleural effusion. Bilateral lobe atelectasis present. IMPRESSION: Abnormal inguinal lymphadenopathy worse on the right with possible external iliac chain pelvic lymphadenopathy as well. Lymph nodes may all be reactive from a lower extremity infectious/ inflammatory process. Pathologic lymphadenopathy cannot be excluded. Isodense masses and pyelonephritis are not excluded on stone protocol technique.Overall exam is limited in the absence of IV contrast. No acute GI process seen. Bilateral pleural effusions more prominent on the right. Atelectasis also present. 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 FINDINGS: Lung volumes are low. Lung markings are further accentuated by large body habitus and portable technique. No dense consolidation in the mid or upper lung mann. Bilateral pleural effusions are present. Cardiomegaly is present with vascular engorgement. No pneumothorax. No acute bony abnormality seen. No acute aortic findings suspected. IMPRESSION: Mild CHF/volume overload pattern accentuated by exam limitations. 2 DIMENSIONAL ASSESSMENT: RIGHT ATRIUM: NORMAL LEFT ATRIUM: NORMAL RIGHT VENTRICLE: NORMAL LEFT VENTRICLE: NORMAL TRICUSPID VALVE: NORMAL MITRAL VALVE: NORMAL PULMONIC VALVE: NORMAL AORTIC VALVE: NORMAL PERICARDIAL EFFUSION: NONE AORTIC ROOT: NORMAL LEFT VENTRICULAR WALL MOTION: NORMAL DOPPLER/COLOR FLOW: NORMAL COMMENTS: NORMAL LEFT VENTRICULAR SIZE AND FUNCTION. MILD MITRAL ANNULAR CALCIFICATION. NO EFFUSION. NO WALL MOTION ABNORMALITY. Conclusions/Impression: A/ ADRIANO suspicious for CRS. Hyperkalemia Hypocalcemia CKD III with proteinuria HTN with CKD/ CHF complicated by hypotension. Hypotension in the setting of multiple medications. Diastolic CHF, A/C. DM II with CKD. Anemia in chronic illness. Acute cystitis. P/ Continue current POC and Medications. Hypotension seems to have improved with reduced doses of Ropinirole and Tizanidine. Increase Lasix 40mg IV q6h to improve volume status. Continue abx. Low sodium diet. LN biopsy pending. No NSAIDs. AM labs. Daily weight. Consider PT. Case reviewed with Dr. Amin.
[2019-12-11] MEDS: LORAZEPAM 0.5 MG TABLET PO PRN (16:11)
[2019-12-11 18:04] LABS: Albumin, (SPE) 2.7 g/dL (3.8-4.8); Alpha-1-Globulins 0.5 g/dL (0.2-0.3); Alpha-2-Globulins 0.8 g/dL (0.5-0.9); INTERPRETATION REPORT
[2019-12-12] MEDS: FUROSEMIDE 40 MG/4 ML VIAL IV SCH ×4 (04:53→21:33)
[2019-12-12 06:12] LABS: Absolute Lymphocytes (CBC) 1.1 K/uL (0.7-4.9); Basophils % 0.7 % (0-1.3); Lymphocytes % 6.9 % (15.3-44.8); MPV 8.8 fL (7.6-11.3); RBC Red Blood Cell Count 4.46 M/uL (3.86-4.86)
[2019-12-12 06:21] LABS: Magnesium 2.3 mg/dL (1.8-2.4); Potassium 4.8 mmol/L (3.5-5.1)
[2019-12-12] MEDS: INSULIN -REGULAR HUMAN 50 UNIT/0.5 ML ML SQ SCH ×4 (07:30→20:28)
[2019-12-12] MEDS: FAMOTIDINE 20 MG/2 ML VIAL IV SCH ×2 (08:23→21:32)
[2019-12-12] MEDS: MAGNESIUM OXIDE 400 MG TAB PO SCH (08:24)
[2019-12-12] MEDS: DOCUSATE NA 100 MG CAP PO SCH ×2 (08:25→21:29)
[2019-12-12] MEDS: TIZANIDINE 4 MG TABLET PO SCH ×3 (08:25→21:32)
[2019-12-12] MEDS: AMOX/K CLAV 500 MG TAB PO SCH ×2 (08:25→21:29)
[2019-12-12] MEDS: CALCITROL 0.25 MCG CAP PO SCH (08:25)
[2019-12-12] MEDS: PREGABALIN 50 MG CAP PO SCH (08:25)
[2019-12-12] MEDS: HEPARIN 5000 UNIT/ML 1 ML VIAL SQ SCH ×2 (08:25→21:31)
[2019-12-12] MEDS: ROPINIROLE HCL 1 MG TAB PO SCH ×3 (08:25→21:32)
[2019-12-12] MEDS: LORATADINE PO SCH (08:26)
[2019-12-12] MEDS: MONTELUKAST 10 MG TAB PO SCH (08:26)
[2019-12-12] MEDS: PSEUDOEPHEDRINE PO SCH (08:26)
[2019-12-12] MEDS: ENSURE HIGH PROTEIN 237 ML CAN PO SCH ×2 (08:26→21:31)
[2019-12-12] MEDS: VITAMIN D 5,000 UNIT CAP PO SCH (08:26)
[2019-12-12] MEDS: HOME MED 1 EA UNK (Fluticasone/Umeclidin/Vilanter [Trelegy Ellipta 100-62.5-25] 1 EACH) IH SCH (08:26)
--- NOTE | 2019-12-12 13:36 | P.PN ---
Subjective Date of Service: 12/12/19 Primary Care Provider: Maryjane Garcia Chief Complaint: ARF, Hyperkalemia, UTI Subjective: Tolerating diet, Improving, Doing well Review of Systems General: Unremarkable Eyes: Unremarkable ENT: Unremarkable Respiratory: Unremarkable Cardiovascular: Unremarkable Gastrointestinal: Unremarkable Genitourinary: Unremarkable Musculoskeletal: Unremarkable Integumentary: Unremarkable Physical Examination - Vital Signs Temperature: 97.9 F Blood Pressure: 136/78 Pulse: 79 Respirations: 23 Pulse Ox (%): 94 - Physical Exam General: Alert, In no apparent distress, Oriented x3, Cooperative, Obese HEENT: Atraumatic, Normocephalic, PERRLA Neck: Supple, Other (Trachea midline) Respiratory: Clear to auscultation bilaterally, Normal air movement Cardiovascular: Normal pulses, Regular rate/rhythm, Normal S1 S2 Capillary refill: <2 Seconds Gastrointestinal: Normal bowel sounds, Soft and benign Musculoskeletal: No tenderness Integumentary: No rashes, No breakdown Neurological: Normal speech, Normal strength at 5/5 x4 extr, Normal tone - Studies Medications List Reviewed: Yes Assessment And Plan - Plan Assessment Acute renal failure with hyperkalemia Significant lymphadenopathy in the right axillary and right supraclavicular chains Urinary tract infection, urine culture plus for E coli Dyspnea likely secondary to CHF COPD Hypertension Diabetes mellitus type 2 Chronic lymphedema Depression with anxiety Plan Acute renal failure with hyperkalemia: Renal function remained stable. Spoke with pulmonology to evaluate her shortness of breath. Shortness of breath related to diastolic CHF. Patient received IV Lasix through this morning and Lasix was discontinued. Patient is currently at 94% oxygen saturations on 3 L nasal cannula. Continue to monitor urinary output. Will discuss further with nephrology. Continue physical therapy. Patient prefers to go home at discharge with home health. Spoke with healthcare social worker to help arrange this. This will likely occur on Saturday. Significant lymphadenopathy in the right axillary and right supraclavicular chains: Await biopsy report. If abnormal will discuss with Oncology with options. Urinary tract infection, urine culture positive for E coli: Rocephin IV 1 g once daily discontinued. Patient switched to Augmentin 500-125 mg p.o. b.i.d. based on urine culture report. Dyspnea secondary to acute on chronic diastolic CHF: Pulmonology recommended diuresing. Patient tolerated diuresing well and Lasix was discontinued today. Will continue to monitor urinary output. Urine output improved. Renal function stable. Will also discuss with nephrology. COPD: Continue medication. Continue with pulmonology recommendations. Currently on 3 L nasal cannula with 94% oxygen saturation Hypertension: Will monitor closely. IV medication provided as needed. Diabetes mellitus type 2: Monitor accuchecks. Continue sliding scale. Chronic lymphedema: Continue with medication Depression with anxiety: Will provide medication for anxiety. Discharge Plan: Home Plan to discharge in: 48 Hours - Code Status/Comfort Care Code Status Assessed: Yes Physician Review Additional Text: Assessment Acute renal failure with hyperkalemia Significant lymphadenopathy in the right axillary and right supraclavicular win ins Urinary tract infection, urine culture plus for E coli Dyspnea likely secondary to CHF COPD Hypertension Diabetes mellitus type 2 Chronic lymphedema Depression with anxiety Plan Acute renal failure with hyperkalemia: Renal function remained stable. Spoke with pulmonology to evaluate her shortness of breath. Shortness of breath related to diastolic CHF. Patient will get IV Lasix as recommended by pulmonology. Continue to monitor urinary output. Will discuss further with nephrology. I will be out of town but pulmonology will cover the hospitalist service. Continue physical therapy. Patient prefers to go home at discharge with home health. Spoke with healthcare social worker to help arrange this. This will likely occurred likely as early as Saturday. I will return at that time. Significant lymphadenopathy in the right axillary and right supraclavicular chains: Await biopsy report. If abnormal will discuss with Oncology with options. Urinary tract infection, urine culture positive for E coli: Will continue with Rocephin IV 1 g once daily, will follow up with urine culture from the emergency department. Dyspnea secondary to acute on chronic diastolic CHF: Pulmonology recommends diuresis. Continue IV Lasix. Monitor urinary output. Urine output improved. Renal function stable. Will also discuss with nephrology. COPD: Continue medication. Continue with pulmonology recommendations Hypertension: Will monitor closely. IV medication provided as needed. Diabetes mellitus type 2: Monitor accuchecks. Continue sliding scale. Chronic lymphedema: Continue with medication Depression with anxiety: Will provide medication for anxiety. Time Spent Managing PTS Care (In Minutes): 45
[2019-12-13] MEDS: ACETAMINOPHEN 500 MG TAB PO PRN (00:31)
[2019-12-13] MEDS: FUROSEMIDE 40 MG/4 ML VIAL IV SCH ×4 (04:00→21:45)
[2019-12-13 06:24] LABS: Basophils % 1.1 % (0-1.3); Hematocrit 33.6 % (36.0-45.0); Lymphocytes % 7.9 % (15.3-44.8); RBC Red Blood Cell Count 4.09 M/uL (3.86-4.86)
[2019-12-13 06:26] LABS: Magnesium 2.3 mg/dL (1.8-2.4); Potassium 5.1 mmol/L (3.5-5.1)
[2019-12-13] MEDS: INSULIN -REGULAR HUMAN 50 UNIT/0.5 ML ML SQ SCH ×4 (07:30→21:00)
[2019-12-13] MEDS: LORATADINE PO SCH (09:00)
[2019-12-13] MEDS: PSEUDOEPHEDRINE PO SCH (09:00)
[2019-12-13] MEDS: ENSURE HIGH PROTEIN 237 ML CAN PO SCH ×2 (09:00→21:00)
[2019-12-13] MEDS: HOME MED 1 EA UNK (Fluticasone/Umeclidin/Vilanter [Trelegy Ellipta 100-62.5-25] 1 EACH) IH SCH (09:00)
[2019-12-13] MEDS: VITAMIN D 5,000 UNIT CAP PO SCH (09:39)
[2019-12-13] MEDS: HEPARIN 5000 UNIT/ML 1 ML VIAL SQ SCH ×2 (09:39→21:46)
[2019-12-13] MEDS: MONTELUKAST 10 MG TAB PO SCH (09:39)
[2019-12-13] MEDS: DOCUSATE NA 100 MG CAP PO SCH ×2 (09:39→21:45)
[2019-12-13] MEDS: CALCITROL 0.25 MCG CAP PO SCH (09:39)
[2019-12-13] MEDS: PREGABALIN 50 MG CAP PO SCH (09:39)
[2019-12-13] MEDS: ROPINIROLE HCL 1 MG TAB PO SCH (09:39)
[2019-12-13] MEDS: AMOX/K CLAV 500 MG TAB PO SCH ×2 (09:40→21:45)
[2019-12-13] MEDS: TIZANIDINE 4 MG TABLET PO SCH (09:40)
[2019-12-13] MEDS: MAGNESIUM OXIDE 400 MG TAB PO SCH (09:40)
[2019-12-13] MEDS: FAMOTIDINE 20 MG/2 ML VIAL IV SCH ×2 (09:40→21:46)
--- NOTE | 2019-12-13 11:47 | P.PN ---
Subjective Date of Service: 12/13/19 Primary Care Provider: Maryjane Garcia Chief Complaint: ARF, Hyperkalemia, UTI Subjective: No new changes, Doing well, Other (Patient states that she would like to go home.) Review of Systems 10-point ROS is otherwise unremarkable Physical Examination - Vital Signs Temperature: 97.1 F Blood Pressure: 134/60 Pulse: 87 Respirations: 22 Pulse Ox (%): 96 - Physical Exam General: Alert, In no apparent distress, Oriented x3, Obese HEENT: Atraumatic, Normocephalic, PERRLA Neck: Supple, Other (Trachea midline) Respiratory: Clear to auscultation bilaterally, Normal air movement Cardiovascular: Normal pulses, Regular rate/rhythm, Normal S1 S2 Capillary refill: <2 Seconds Gastrointestinal: Normal bowel sounds, Soft and benign, Non-distended Musculoskeletal: No swelling, No erythema, No tenderness Integumentary: No rashes, No breakdown Neurological: Normal speech, Normal strength at 5/5 x4 extr, Normal tone - Studies Medications List Reviewed: Yes Assessment And Plan - Plan Assessment Acute on chronic renal failure with hyperkalemia Significant lymphadenopathy in the right axillary and right supraclavicular chains Urinary tract infection, urine culture plus for E coli Dyspnea likely secondary to CHF COPD Hypertension Diabetes mellitus type 2 Chronic lymphedema Depression with anxiety Plan Chronic renal failure with hyperkalemia: Acute phase resolved. Renal function has remained stable. Spoke with pulmonology to evaluate her shortness of breath. Shortness of breath related to diastolic CHF. Patient continues on IV Lasix. Spoke with Nephrology and plan is to discharge patient on 60 mg p.o. Lasix b.i.d.. Patient is currently at 94-96% oxygen saturations on 3 L nasal cannula. Likely her baseline. Continue to monitor urinary output. Nephrology also discontinued patient's Tizanidine, Xanaflex and Lyrica. Continue physical therapy. Patient prefers to go home at discharge with home health and wants to go home as soon as possible. Spoke with social work therapist to help arrange this. This will likely occur on Saturday. Significant lymphadenopathy in the right axillary and right supraclavicular chains: Await biopsy report. If abnormal will discuss with Oncology with options. Urinary tract infection, urine culture positive for E coli: Continue Augmentin 500-125 mg p.o. b.i.d. based on urine culture report. Doing well. No urinary symptoms at this time. Dyspnea secondary to chronic diastolic CHF: Acute phase resolved. Pulmonology recommended diuresing. Patient tolerating diuresing well. Spoke with Nephtacos barrett today. Nephrology would like to continue Lasix and on discharge would like patient to take Lasix 60 mg p.o. b.i.d. Will continue to monitor urinary output. Renal function stable. COPD: Continue medication. Continue with pulmonology recommendations. Currently on 3 L nasal cannula with 94-96% oxygen saturation Hypertension: Will monitor closely. IV medication provided as needed. Diabetes mellitus type 2: Monitor accuchecks. Continue sliding scale. Chronic lymphedema: Continue with medication Depression with anxiety: Will provide medication for anxiety. Discharge Plan: Home Plan to discharge in: 24 Hours - Code Status/Comfort Care Code Status Assessed: Yes Physician Review Additional Text: Assessment Acute renal failure with hyperkalemia Significant lymphadenopathy in the right axillary and right supraclavicular chains Urinary tract infection, urine culture plus for E coli Dyspnea likely secondary to CHF COPD Hypertension Diabetes mellitus type 2 Chronic lymphedema Depression with anxiety Plan Acute renal failure with hyperkalemia: Renal function remained stable. Spoke with pulmonology to evaluate her shortness of breath. Shortness of breath related to diastolic CHF. Patient will get IV Lasix as recommended by pulmonology. Continue to monitor urinary output. Will discuss further with nephrology. I will be out of town but pulmonology will cover the hospitalist service. Continue physical therapy. Patient prefers to go home at discharge with home health. Spoke with social work therapist to help arrange this. This will likely occurred likely as early as Saturday. I will return at that time. Significant lymphadenopathy in the right axillary and right supraclavicular chains: Await biopsy report. If abnormal will discuss with Oncology with options. Urinary tract infection, urine culture positive for E coli: Will continue with Rocephin IV 1 g once daily, will follow up with urine culture from the emergency department. Dyspnea secondary to acute on chronic diastolic CHF: Pulmonology recommends diuresis. Continue IV Lasix. Monitor urinary output. Urine output improved. Renal function stable. Will also discuss with nephrology. COPD: Continue medication. Continue with pulmonology recommendations Hypertension: Will monitor closely. IV medication provided as needed. Diabetes mellitus type 2: Monitor accuchecks. Continue sliding scale. Chronic lymphedema: Continue with medication Depression with anxiety: Will provide medication for anxiety. Time Spent Managing PTS Care (In Minutes): 45
[2019-12-13] MEDS: LORAZEPAM 0.5 MG TABLET PO PRN ×2 (12:31→23:37)
--- NOTE | 2019-12-13 15:59 | PN ---
Date of Progress Note: 12/13/2019 Subjective: Patient is seen at the bedside. Her mentation is much improved today compared to yester day. She has no acute complaints. She states that her respiratory effort to the way that she is gonzalo athing now is actually at her baseline when she is at home. She denies any fevers, chills, chest kevin n. No worsening of her dyspnea. Denies any nausea, vomiting, or diarrhea. Objective: Vital Signs: Blood pressure 134/60, pulse 87, temperature 97.1. Input and output 710 in , 1400 out, negative 690. General: Morbidly obese. No acute distress. Using nasal cannula. Heart: Regular rate and rhythm. No murmurs, rubs, gallops. Lungs: Poor air movement bilaterally, but no obvious rales, rhonchi, or wheezing. Abdomen: Distended, but soft, nontender. Extremities: With 1 to 2+ edema, however, that has improved since admission. Laboratory Data: CBC was reviewed. WBC 12.7, hemoglobin 10.7, hematocrit 33.6, platelet count 272. Serum chemistry: Sodium 136, potassium 5.1, chloride 105, CO2 of 23, BUN 62, creatinine 2.87, which has remained relatively stable since this admission, but definitely above her prior baseline. Calci um is 8.1, magnesium is 2.3. UA from the 2nd was reviewed. Microbiology data: Prior urine culture with E coli noted. Current Medications: Reviewed and of note, patient is on vitamin D 5000 daily, calcitriol 0.5 daily, Lasix 40 mg IV q.6, magnesium 400 mg p.o. daily. Remainder of medications as stated were reviewed. Impression: 1.Acute kidney injury on chronic kidney disease, likely from cardiorenal syndrome. 2.Electrolyte abnormalities. 3.Chronic congestive heart failure. 4.Hypotension. 5.Acute cystitis. 6.Diabetes mellitus. Plan: Patient's diuresis has improved with current dose of Lasix. We will continue IV diuresis. Th e patient's blood pressure had improved with removal all of the muscle relaxants and movement disorde r medications. So, I went ahead and stopped those again including the Zanaflex, Requip, and Lyrica a nd we will monitor her blood pressure. Continue current rate of diuresis. Patient has not yet been discharged as she is waiting for supplemental O2 to be available for her upon going home. We will co beltran to follow. Please ensure that daily labs were drawn. /PEREZ Voice ID: [id number] Report ID: [id number]
[2019-12-14] MEDS: FENTANYL 25 MCG/PATCH TD SCH (01:06)
[2019-12-14] MEDS: ALBUTEROL INHALER 60 PUFF/8 GM IH PRN (02:11)
[2019-12-14] MEDS: ACETAMINOPHEN 500 MG TAB PO PRN (03:17)
[2019-12-14] MEDS: FUROSEMIDE 40 MG/4 ML VIAL IV SCH ×4 (03:18→21:47)
[2019-12-14 04:53] LABS: Absolute Lymphocytes (CBC) 1.1 K/uL (0.7-4.9); Hematocrit 35.9 % (36.0-45.0); Lymphocytes % 6.2 % (15.3-44.8); MPV 9.4 fL (7.6-11.3); RBC Red Blood Cell Count 4.28 M/uL (3.86-4.86)
[2019-12-14 05:44] LABS: Blood Morphology Comment NOTED (NOT SEEN); Platelet Estimate ADEQ; Polychromasia 1+
[2019-12-14] MEDS: INSULIN -REGULAR HUMAN 50 UNIT/0.5 ML ML SQ SCH ×4 (07:30→21:00)
[2019-12-14] MEDS: LORATADINE PO SCH (09:00)
[2019-12-14] MEDS: ENSURE HIGH PROTEIN 237 ML CAN PO SCH ×2 (09:00→21:00)
[2019-12-14] MEDS: HOME MED 1 EA UNK (Fluticasone/Umeclidin/Vilanter [Trelegy Ellipta 100-62.5-25] 1 EACH) IH SCH (09:00)
[2019-12-14] MEDS: PSEUDOEPHEDRINE PO SCH (09:00)
[2019-12-14] MEDS: CALCITROL 0.25 MCG CAP PO SCH (09:37)
[2019-12-14] MEDS: AMOX/K CLAV 500 MG TAB PO SCH ×2 (09:37→21:47)
[2019-12-14] MEDS: MAGNESIUM OXIDE 400 MG TAB PO SCH (09:37)
[2019-12-14] MEDS: DOCUSATE NA 100 MG CAP PO SCH ×2 (09:37→21:47)
[2019-12-14] MEDS: VITAMIN D 5,000 UNIT CAP PO SCH (09:38)
[2019-12-14] MEDS: FAMOTIDINE 20 MG/2 ML VIAL IV SCH ×2 (09:39→21:47)
[2019-12-14] MEDS: MONTELUKAST 10 MG TAB PO SCH (09:39)
[2019-12-14] MEDS: HEPARIN 5000 UNIT/ML 1 ML VIAL SQ SCH ×2 (09:39→21:47)
--- NOTE | 2019-12-14 12:05 | P.PN ---
Subjective Date of Service: 12/14/19 Primary Care Provider: Maryjane Garcia Chief Complaint: ARF, Hyperkalemia, UTI Subjective: New changes (Patient more lethargic and confused this morning.) Review of Systems General: Unremarkable Eyes: Unremarkable ENT: Unremarkable Respiratory: Unremarkable Cardiovascular: Unremarkable Musculoskeletal: Unremarkable Neurological: As per HPI Physical Examination - Vital Signs Temperature: 97.8 F Blood Pressure: 121/68 Pulse: 108 Respirations: 20 Pulse Ox (%): 90 - Physical Exam General: Alert, Oriented x2, Confused (Slightly confused this morning), Obese HEENT: Atraumatic, Normocephalic, PERRLA Neck: Supple, Other (Trachea midline) Respiratory: Clear to auscultation bilaterally, Normal air movement Cardiovascular: Normal pulses, Normal S1 S2 Capillary refill: <2 Seconds Gastrointestinal: Normal bowel sounds, Soft and benign, Non-distended Musculoskeletal: No erythema, No tenderness, No warmth Neurological: Normal strength at 5/5 x4 extr, Normal tone, Other (For confused and having more difficulty answering questions this morning. Slightly lethargic.), Abnormal affect - Studies Medications List Reviewed: Yes Assessment And Plan - Plan Assessment Acute on chronic renal failure with hyperkalemia Significant lymphadenopathy in the right axillary and right supraclavicular chains Urinary tract infection, urine culture plus for E coli Dyspnea likely secondary to CHF COPD Hypertension Diabetes mellitus type 2 Chronic lymphedema Depression with anxiety Plan Chronic renal failure with hyperkalemia: Renal function has remained stable. Spoke with pulmonology to evaluate her shortness of breath. Shortness of breath related to diastolic CHF. Patient continues on IV Lasix. Spoke with Nephrology and plan is to discharge patient on 60 mg p.o. Lasix b.i.d.. Patient is currently at 94% oxygen saturations on 3 L nasal cannula. Likely her baseline. Continue to monitor urinary output. Nephrology also discontinued patient's Tizanidine, Xanaflex and Lyrica. Continue physical therapy. Significant lymphadenopathy in the right axillary and right supraclavicular chains: Await biopsy report. If abnormal will discuss with Oncology with options. Urinary tract infection, urine culture positive for E coli: Continue Augmentin 500-125 mg p.o. b.i.d. based on urine culture report. No urinary symptoms at this time. Patient seems slightly lethargic and confused this morning. Having difficulty answering questions and of maintaining a conversation when compared to yesterday. Her lab work also shows an increase in white cell count for 12.7- 17, also shows bands of 19 and has a pulse rate slightly elevated at 108. Will likely hold off on discharge today and monitor patient for another 24 hr. Dyspnea secondary to chronic diastolic CHF: At baseline. Pulmonology recommended diuresing. Patient tolerating diuresing well. Spoke with Nephrology today. Nephrology would like to continue Lasix and on discharge would like patient to take Lasix 60 mg p.o. b.i.d. Will continue to monitor urinary output. Renal function stable. COPD: Continue medication. Continue with pulmonology recommendations. Currently on 3 L nasal cannula with 94% oxygen saturation. Patient continues taking her oxygen off and desaturating. This morning room air O2 saturations were 84% per nursing staff. Hypertension: Will monitor closely. IV medication provided as needed. Blood pressure today of 121/68. Diabetes mellitus type 2: Monitor accuchecks. Continue sliding scale. Chronic lymphedema: Continue with medication Depression with anxiety: Will provide medication for anxiety. Plan to discharge in: 24 Hours - Code Status/Comfort Care Code Status Assessed: Yes Physician Review Additional Text: Assessment Acute renal failure with hyperkalemia Significant lymphadenopathy in the right axillary and right supraclavicular chains Urinary tract infection, urine culture plus for E coli Dyspnea likely secondary to CHF COPD Hypertension Diabetes mellitus type 2 Chronic lymphedema Depression with anxiety Plan Acute renal failure with hyperkalemia: Renal function remained stable. Spoke with pulmonology to evaluate her shortness of breath. Shortness of breath related to diastolic CHF. Patient will get IV Lasix as recommended by pulmonology. Continue to monitor urinary output. Will discuss further with nephrology. I will be out of town but pulmonology will cover the hospitalist service. Continue physical therapy. Patient prefers to go home at discharge with home health. Spoke with social sciences department chair to help arrange this. This will likely occurred likely as early as Saturday. I will return at that time. Significant lymphadenopathy in the right axillary and right supraclavicular chains: Await biopsy report. If abnormal will discuss with Oncology with options. Urinary tract infection, urine culture positive for E coli: Will continue with Rocephin IV 1 g once daily, will follow up with urine culture from the emergency department. Dyspnea secondary to acute on chronic diastolic CHF: Pulmonology recommends diu resis. Continue IV Lasix. Monitor urinary output. Urine output improved. Renal function stable. Will also discuss with nephrology. COPD: Continue medication. Continue with pulmonology recommendations Hypertension: Will monitor closely. IV medication provided as needed. Diabetes mellitus type 2: Monitor accuchecks. Continue sliding scale. Chronic lymphedema: Continue with medication Depression with anxiety: Will provide medication for anxiety. Time Spent Managing PTS Care (In Minutes): 55
[2019-12-14 15:10] LABS: Arterial Blood Carboxyhemoglob 1.3 % (0-1.5); Blood Gas Oxyhemoglobin 90.8 % (94-97); Blood O2 Saturation 93.1 % (92-98.5)
--- NOTE | 2019-12-14 18:10 | P.PN ---
Date of Service: 12/14/19 Vital Signs Temp Pulse Resp BP Pulse Ox 97.1 F 86 20 159/80 H 94 12/14/19 16:00 12/14/19 17:20 12/14/19 16:00 12/14/19 17:20 12/14/19 16:00 Medications Acetaminophen (Tylenol -Extra Strength) 500 mg PO Q4HP PRN PRN Reason: TEMP > 100' F Stop: 01/06/20 18:07 Last Admin: 12/14/19 03:17 Dose: 500 mg Documented by: Albuterol Sulfate (Ventolin Inhaler) 2 puff IH Q6H PRN PRN Reason: SHORTNESS OF BREATH Stop: 01/07/20 00:04 Last Admin: 12/10/19 08:18 Dose: 2 puff Documented by: Amoxicillin/Clavulanate Potassium (Augmentin 500-125 Mg Tab) 500 mg PO BID [facility] Stop: 01/09/20 21:01 Last Admin: 12/14/19 09:37 Dose: 500 mg Documented by: Calcitriol (Rocaltrol) 0.5 mcg PO DAILY [facility] Stop: 01/10/20 09:01 Last Admin: 12/14/19 09:37 Dose: 0.5 mcg Documented by: Cholecalciferol (Vitamin D 5,000 Iu Cap) 5,000 unit PO DAILY [facility] Stop: 01/10/20 09:01 Last Admin: 12/14/19 09:38 Dose: 5,000 unit Documented by: Docusate Sodium (Colace Cap) 100 mg PO BID [facility] Stop: 01/07/20 09:01 Last Admin: 12/14/19 09:37 Dose: 100 mg Documented by: Famotidine (Pepcid) 20 mg IV BID [facility]; Protocol Stop: 01/07/20 21:01 Last Admin: 12/14/19 09:39 Dose: 20 mg Documented by: Fentanyl (Duragesic Patch) 50 mcg TD Q72H [facility] Stop: 01/07/20 02:01 Last Admin: 12/14/19 01:06 Dose: 50 mcg Documented by: Furosemide (Lasix) 40 mg IV Q6H [facility] Stop: 01/10/20 16:01 Last Admin: 12/14/19 17:20 Dose: 40 mg Documented by: Heparin Sodium (Porcine) (Heparin 5,000 Units/Ml) 5,000 unit SQ Q12HR [facility] Stop: 01/06/20 21:01 Last Admin: 12/14/19 09:39 Dose: 5,000 unit Documented by: Home Med (Fluticasone/Umeclidin/Vilanter [Trelegy Ellipta 100-62.5-25]) 1 each IH DAILY [facility] Stop: 01/07/20 09:01 Last Admin: 12/14/19 09:00 Dose: Not Given Documented by: Home Med (Loratadine/Pseudoephedrine [Claritin-D 24 Hour Tablet]) 1 each PO DAILY [facility] Stop: 01/07/20 09:01 Last Admin: 12/14/19 09:00 Dose: Not Given Documented by: Insulin Human Regular (Novolin -R) 0 unit SQ ACHS [facility]; Protocol Stop: 01/06/20 18:07 Last Admin: 12/14/19 16:30 Dose: Not Given Documented by: Lorazepam (Ativan) 0.25 mg PO BID PRN PRN Reason: ANXIETY Stop: 01/10/20 14:51 Last Admin: 12/13/19 23:37 Dose: 0.25 mg Documented by: Magnesium Oxide (Mag 0x Tab) 400 mg PO DAILY [facility] Stop: 01/07/20 09:01 Last Admin: 12/14/19 09:37 Dose: 400 mg Documented by: Montelukast Sodium (Singulair) 10 mg PO DAILY [facility] Stop: 01/07/20 09:01 Last Admin: 12/14/19 09:39 Dose: 10 mg Documented by: Nutritional Formula (Ensure High Protein) 237 ml PO BID [facility] Stop: 01/07/20 21:01 Last Admin: 12/14/19 09:00 Dose: Not Given Documented by: Ondansetron HCl (Zofran) 4 mg IV Q6HP PRN PRN Reason: NAUSEA / VOMITING Stop: 01/06/20 18:07 Phenyleph/Shark Oil/Min Oil/Petrol (Formulation R) 1 appl [place] BID PRN PRN Reason: HEMORRHOIDS Stop: 01/07/20 14:09 Sodium Chloride (Normal Saline Flush) 10 ml IV BID [facility] Stop: 01/06/20 21:01 Last Admin: 12/14/19 09:36 Dose: 10 ml Documented by: Microbiology Results 12/07/19 12:50 Catheterized Urine [place] Count - Final >100,000 CFU/ML. 12/07/19 12:50 Catheterized Urine - Final Escherichia Coli Assessment/ Plan: Nephrology Resting comfortably in bed. CPS stable without CP or SOB. +MARTIN No acute events overnight. Vitals, medications, blood work and imaging reviewed in the chart. General: Alert, Oriented x3, Cooperative HEENT: Atraumatic, Mucous membr. moist/pink Neck: Supple Respiratory: Clear to auscultation bilaterally, Diminished Cardiovascular: Regular rate/rhythm, Edema Gastrointestinal: Soft and benign, Non-distended Musculoskeletal: No clubbing, No contractures Integumentary: No cyanosis, Skin lesion Neurological: Normal speech Blood work reviewed in the chart. Imagings Data: EXAM DESCRIPTION: CT - Stone Protocol - 12/07/2019 2:12 pm CLINICAL HISTORY: FLANK PAIN COMPARISON: No comparisons TECHNIQUE: Axial 5 mm thick images were obtained without oral or IV contrast. The [id number] spans the entirety of the system including uppermost abdomen and lung bases. All CT scans are performed using dose optimization technique as appropriate and may include automated exposure control or mA/KV adjustment according to patient size. FINDINGS: No hydronephrosis is present and no obstructing ureteral calculi. No suspicious renal masses. Isodense masses and pyelonephritis are not excluded on a stone protocol CT scan. No significant adrenal finding. Urinary bladder is fully contracted around a Person catheter. Imaged portions of the liver, spleen and pancreas show no suspicious findings on non-contrast imaging. Cholecystectomy clips are present. No biliary tree dilatation. Small hiatal hernia is present. No acute stomach finding. No dilated large or small bowel. A primary GI process is not suspected. A 4 centimeter periumbilical hernia is present containing fat. This is a minimal amount of congestion or edema. No free air or pneumatosis. Patient has fluid retention in the subcutaneous fatty tissues of the abdomen. Pelvic floor assessment is limited. There is substantial spray artifact from left hip prosthesis. Periaortic/ pericaval small nonspecific lymph nodes are present. Patient has significant bilateral inguinal lymphadenopathy worse on the right. There appears to be external iliac lymphadenopathy on the right that may be measures large is 5 cm x 3 cm. The spray artifact limits detail. Bony degenerative changes are present 50% compression fracture deformity of L4 is present but appears to be old. Degenerative changes are present L4 in the lumbar and lower thoracic spine. Small to moderate right pleural effusion partially imaged. Trace left pleural effusion. Bilateral lobe atelectasis present. IMPRESSION: Abnormal inguinal lymphadenopathy worse on the right with possible external iliac chain pelvic lymphadenopathy as well. Lymph nodes may all be reactive from a lower extremity infectious/ inflammatory process. Pathologic lymphadenopathy cannot be excluded. Isodense masses and pyelonephritis are not excluded on stone protocol technique.Overall exam is limited in the absence of IV contrast. No acute GI process seen. Bilateral pleural effusions more prominent on the right. Atelectasis also present. EXAM DESCRIPTION: RAD - Chest Single View - 12/07/2019 1:20 pm CLINICAL HISTORY: Cough;[employer] COMPARISON: November 2017 TECHNIQUE: AP portable chest image was obtained 12/07/2019 1:20 pm . FINDINGS: Lung volumes are low. Lung markings are further accentuated by large body habitus and portable technique. No dense consolidation in the mid or upper lung mann. Bilateral pleural effusions are present. Cardiomegaly is present with vascular engorgement. No pneumothorax. No acute bony abnormality seen. No acute aortic findings suspected. IMPRESSION: Mild CHF/volume overload pattern accentuated by exam limitations. 2 DIMENSIONAL ASSESSMENT: RIGHT ATRIUM: NORMAL LEFT ATRIUM: NORMAL RIGHT VENTRICLE: NORMAL LEFT VENTRICLE: NORMAL TRICUSPID VALVE: NORMAL MITRAL VALVE: NORMAL PULMONIC VALVE: NORMAL AORTIC VALVE: NORMAL PERICARDIAL EFFUSION: NONE AORTIC ROOT: NORMAL LEFT VENTRICULAR WALL MOTION: NORMAL DOPPLER/COLOR FLOW: NORMAL COMMENTS: NORMAL LEFT VENTRICULAR SIZE AND FUNCTION. MILD MITRAL ANNULAR CALCIFICATION. NO EFFUSION. NO WALL MOTION ABNORMALITY. Conclusions/Impression: A/ ADRIANO suspicious for CRS. Hyperkalemia Hypocalcemia CKD III with proteinuria HTN with CKD/ CHF complicated by hypotension. Hypotension in the setting of multiple medications, resolved. Diastolic CHF, A/C. DM II with CKD. Anemia in chronic illness. Acute E.coli cystitis. P/ Continue current POC and Medications. Continue Lasix 40mg IV q6h to improve volume status. Continue abx. Low sodium diet. LN biopsy pending. No NSAIDs. AM labs. Daily weight. PT as tolerated. Case reviewed with Dr. Amin.
[2019-12-15] MEDS: FUROSEMIDE 40 MG/4 ML VIAL IV SCH ×3 (04:00→16:00)
[2019-12-15] MEDS: ACETAMINOPHEN 500 MG TAB PO PRN (06:45)
[2019-12-15] MEDS: INSULIN -REGULAR HUMAN 50 UNIT/0.5 ML ML SQ SCH ×3 (07:30→16:30)
[2019-12-15] MEDS: AMOX/K CLAV 500 MG TAB PO SCH (08:59)
[2019-12-15] MEDS: MONTELUKAST 10 MG TAB PO SCH (08:59)
[2019-12-15] MEDS: CALCITROL 0.25 MCG CAP PO SCH (08:59)
[2019-12-15] MEDS: FAMOTIDINE 20 MG/2 ML VIAL IV SCH (08:59)
[2019-12-15] MEDS: HEPARIN 5000 UNIT/ML 1 ML VIAL SQ SCH (08:59)
[2019-12-15] MEDS: DOCUSATE NA 100 MG CAP PO SCH (08:59)
[2019-12-15] MEDS: MAGNESIUM OXIDE 400 MG TAB PO SCH (08:59)
[2019-12-15] MEDS: VITAMIN D 5,000 UNIT CAP PO SCH (09:00)
[2019-12-15] MEDS: LORATADINE PO SCH (09:00)
[2019-12-15] MEDS: ENSURE HIGH PROTEIN 237 ML CAN PO SCH (09:00)
[2019-12-15] MEDS: PSEUDOEPHEDRINE PO SCH (09:00)
[2019-12-15] MEDS: HOME MED 1 EA UNK (Fluticasone/Umeclidin/Vilanter [Trelegy Ellipta 100-62.5-25] 1 EACH) IH SCH (09:00)
[2019-12-15 09:08] LABS: Magnesium 2.6 mg/dL (1.8-2.4); Potassium 5.2 mmol/L (3.5-5.1)
[2019-12-15 09:14] LABS: Absolute Lymphocytes (CBC) 1.4 K/uL (0.7-4.9); Basophils % 0.9 % (0-1.3); Hematocrit 34.9 % (36.0-45.0); Lymphocytes % 8.9 % (15.3-44.8); MPV 9.1 fL (7.6-11.3); RBC Red Blood Cell Count 4.21 M/uL (3.86-4.86)
--- NOTE | 2019-12-15 09:22 | RAD REPORT ---
EXAM DESCRIPTION: RAD - Chest Single View - 12/15/2019 9:01 am CLINICAL HISTORY: sob COMPARISON: Portable chest December 08 TECHNIQUE: AP portable chest image was obtained 12/15/2019 9:01 am . FINDINGS: Motion degradation is present. Lung volumes are low. Exam further limited by large body terrazas bitus. Right lung base opacification is present. Right hemidiaphragm is partially obscured. Cardiac silhouet te is enlarged. There is overall widening of the mediastinum and vascular engorgement. No pneumothora x. No acute bony abnormality seen. No acute aortic findings suspected. IMPRESSION: CHF/volume overload findings are present. Patient also has right base opacification that could be concurrent infiltrate or atelectasis. Exam is significantly limited by body habitus affects and motion.
[2019-12-15] MEDS ORDERED: SOD POLYSTYREN SUL 15 GM/60 ML UCUP PO ONE (11:00)
--- NOTE | 2019-12-15 13:38 | P.DS ---
Admission Date: 12/07/19 Discharge Date: 12/15/19 Primary Care Provider: Maryjane Garcia Disposition: HOSPICE-HOME Discharge Condition: GOOD Reason for Admission: ARF, Hyperkalemia, UTI Consultations: Nephrology-Dr. Rodney Pulmonary-Dr. Medrano Procedures: CT Chest: FINDINGS: No hydronephrosis is present and no obstructing ureteral calculi. No suspicious renal masses. Isodense masses and pyelonephritis are not excluded on a stone protocol CT scan. No significant adrenal finding. Urinary bladder is fully contracted around a Person catheter. Imaged portions of the liver, spleen and pancreas show no suspicious findings on non-contrast imaging. Cholecystectomy clips are present. No biliary tree dilatation. Small hiatal hernia is present. No acute stomach finding. No dilated large or small bowel. A primary GI process is not suspected. A 4 centimeter periumbilical hernia is present containing fat. This is a minimal amount of congestion or edema. No free air or pneumatosis. Patient has fluid retention in the subcutaneous fatty tissues of the abdomen. Pelvic floor assessment is limited. There is substantial spray artifact from left hip prosthesis. Periaortic/ pericaval small nonspecific lymph nodes are present. Patient has significant bilateral inguinal lymphadenopathy worse on the right. There appears to be external iliac lymphadenopathy on the right that may be measures large is 5 cm x 3 cm. The spray artifact limits detail. Bony degenerative changes are present 50% compression fracture deformity of L4 is present but appears to be old. Degenerative changes are present L4 in the lumbar and lower thoracic spine. Small to moderate right pleural effusion partially imaged. Trace left pleural effusion. Bilateral lobe atelectasis present. IMPRESSION: Abnormal inguinal lymphadenopathy worse on the right with possible external iliac chain pelvic lymphadenopathy as well. Lymph nodes may all be reactive from a lower extremity infectious/ inflammatory process. Pathologic lymphadenopathy cannot be excluded. Isodense masses and pyelonephritis are not excluded on stone protocol technique.Overall exam is limited in the absence of IV contrast. No acute GI process seen. Bilateral pleural effusions more prominent on the right. Atelectasis also present. ECHO: Ejection fraction 79% LEFT VENTRICULAR WALL MOTION: NORMAL DOPPLER/COLOR FLOW: NORMAL COMMENTS: NORMAL LEFT VENTRICULAR SIZE AND FUNCTION. MILD MITRAL ANNULAR CALCIFICATION. NO EFFUSION. NO WALL MOTION ABNORMALITY Medical Problem List: Acute on chronic renal failure stage IV with hyperkalemia Significant lymphadenopathy in the right axillary and right supraclavicular chains status post Radiology assisted Biopsy Urinary tract infection, urine culture positive for E coli Dyspnea likely secondary to acute on chronic diastolic CHF COPD Pulmonary Hypertension Diabetes mellitus type 2 Chronic lymphedema Depression with anxiety Brief History of Present Illness: 79-year-old female with multiple medical problems including chronic renal disease, diabetes, hypertension prior breast cancer, CHF. Patient presented with increased weakness and urinary complaints. Patient with acute on chronic renal disease with UTI. Patient admitted for further evaluation and treatment. Hospital Course: Patient presented with multiple issues including acute on chronic renal failure stage 4 with hyperkalemia, acute on chronic diastolic CHF, significant lymphadenopathy to the right axillary/supraclavicular chain, and COPD. Patient was treated in the course of her stay. Patient was seen by pulmonology and Neph rology. Patient required diuresis. Patient also treated with Augmentin for her UTI. Patient continue with diuresis. Patient on a fluid restriction. Patient has worked minimally with physical therapy. Patient initially desired skilled placement but preferred going home. Patient is a fall risk. Advanced care planning was addressed in detail. At discharge patient has agreed to hospice at home. Home to be set up for hospital bed, udsty year lift, and home oxygen. At discharge she will continue with a 1500 cc per day fluid restriction. She is to monitor her weight daily. Patient will continue with home oxygen to maintain sats above 98%. Patient will continue with her diuretic medication. Recommend follow up with nephrology in 1 week to follow up this hospitalization. Recommend to recheck lab-BMP at that time. Also recommend follow up with pulmonology in 2-4 weeks to monitor her progress. Due to her significant lymphadenopathy, biopsies or performed by radiology assisted guidance. At discharge pathology report is pending. This is very suspicious for cancer. Patient with prior history of breast cancer with right mastectomy. This will need be followed up with her PCP to further evaluate and consider therapy. As mentioned above patient presented with UTI. E coli was noted on culture. At discharge she will continue with Augmentin 500 twice daily for 3 days. UTI prevention recommended. As mentioned above patient also had acute on chronic diastolic CHF. Patient seen by pulmonology. Patient did well with diuresis. Patient will continue with her diuretic medication. Patient will continue with fluid restriction as recommended above. Patient with hypertension. At discharge she will continue with her medication recommend to maintain blood pressure less 150/80. Further adjustment can be done by her PCP. Patient with diabetes mellitus type 2. She will continue with her medication. Recommend to maintain blood sugar less than 140 fasting less than 200 after meals. Further adjustment can be done by her PCP. Patient with chronic lymphedema. Patient will continue with her current regimen. Patient with chronic pain. Patient will continue with her current pain medications. Recommend follow up with pain management. Patient with obstructive sleep apnea and COPD. Patient will continue with CPAP at night. Patient will also continue with home oxygen to maintain sats above 90%. Patient will continue her other medication. Recommend follow up with pulmonology to further address. Patient with COPD Patient has received. Patient was seen by nephrology. Patient was diuresed. Patient did well then the course of her stay. Patient also had multiple medical issues including significant lymphadenopathy to the right axillary and right supraclavicular chain and UTI positive for E coli. Patient with depression and anxiety. At discharge she will continue with her medication. Vital Signs/Physical Exam: Temp Pulse Resp BP Pulse Ox 96.7 F L 88 18 107/55 L 97 12/15/19 12:00 12/15/19 12:00 12/15/19 12:00 12/15/19 12:00 12/15/19 12:00 Laboratory Data at Discharge: WBC 15.9 K/uL (4.3-10.9) H 12/15/19 08:23 Hgb 10.8 g/dL (12.0-15.0) L 12/15/19 08:23 Hct 34.9 % (36.0-45.0) L 12/15/19 08:23 Plt Count 288 K/uL (152-406) 12/15/19 08:23 Sodium 138 mmol/L (136-145) 12/15/19 08:23 Potassium 5.2 mmol/L (3.5-5.1) H 12/15/19 08:23 BUN 68 mg/dL (7-18) H 12/15/19 08:23 Creatinine 2.61 mg/dL (0.55-1.3) H 12/15/19 08:23 Glucose 125 mg/dL (74-106) H 12/15/19 08:23 Uric Acid 12.8 mg/dL (2.6-6.0) H 12/11/19 05:20 Phosphorus 4.0 mg/dL (2.5-4.9) 12/08/19 04:02 Magnesium 2.6 mg/dL (1.8-2.4) H 12/15/19 08:23 Total Bilirubin 0.2 mg/dL (0.2-1.0) 12/11/19 05:20 AST 6 U/L (15-37) L 12/11/19 05:20 ALT 11 U/L (12-78) L 12/11/19 05:20 Alkaline Phosphatase 108 U/L (45-117) 12/11/19 05:20 Home Medications: RX: Furosemide [Lasix] 40 mg PO DAILY 02/27/12 RX: Metformin HCl 500 mg PO DAILY 02/27/12 Fentanyl Patch [Duragesic Patch*] 50 mcg TD Q72H 08/01/12 Hydrocodone Bit/Acetaminophen [Hydrocodon-Acetaminophen 5-500] 1 each PO BID 08/01/12 Albuterol Inhaler [Ventolin Inhaler] 2 puff IH Q6H PRN 12/07/19 Fluticasone/Umeclidin/Vilanter [Trelegy Ellipta 100-62.5-25] 1 each IH DAILY 12/07/19 Loratadine/Pseudoephedrine [Claritin-D 24 Hour Tablet] 1 each PO DAILY 12/07/19 Magnesium Oxide [Magnesium] 250 mg PO DAILY 12/07/19 Montelukast [Singulair] 10 mg PO DAILY 12/07/19 Pregabalin [Lyrica] 75 mg PO BID 12/07/19 RX: Docusate Sodium 100 mg PO BID 12/07/19 RX: Ropinirole HCl 4 mg PO TID 12/07/19 Spironolactone [Aldactone] 25 mg PO DAILY 12/07/19 Tizanidine [Zanaflex] 4 mg PO Q8H 12/07/19 Furosemide [Lasix] 60 mg PO BIDL 14 Days #84 tab 12/12/19 New Medications: Furosemide [Lasix] 60 mg PO BIDL 14 Days #84 tab
[2019-12-15] MEDS ORDERED: RSI MEDICATION KIT IV ONE (14:01)
[2019-12-15] MEDS ORDERED: FUROSEMIDE 40 MG/4 ML VIAL ONE (14:01)
--- NOTE | 2019-12-15 14:22 | P.PN ---
Subjective Date of Service: 12/15/19 Primary Care Provider: Maryjane Garcia Chief Complaint: ARF, Hyperkalemia, UTI Subjective: Other (Rapid response called. Patient appeared cyanotic. Patient had been without her oxygen for underdetermined amount of time. Patient was arousable. Blood pressure stable. Patient given Lasix 80 mg 1 time dose. ABG obtained. Will order CT scan. Will start IV antibiotic therapy for possible aspiration.) Physical Examination - Vital Signs Temperature: 96.7 F Blood Pressure: 107/55 Pulse: 88 Respirations: 18 Pulse Ox (%): 97 - Physical Exam General: Other (Patient more alert after rapid response. Patient appropriate and answering questions. Still lethargic.) Respiratory: Crackles/rales (Crackles bilaterally.) Cardiovascular: Normal pulses, Regular rate/rhythm Gastrointestinal: No guarding, Other (Morbid obesity) Integumentary: Tenderness/swelling (Chronic lymphedema to the lower extremity) Neurological: Normal speech - Studies Medications List Reviewed: Yes Assessment & Plan Discharge Plan: Home Plan to discharge in: Greater than 2 days Physician Review Additional Text: Assessment Acute respiratory failure with hypoxia and hypercapnia secondary to acute on chronic diastolic CHF and patient without oxygen, possible underlying aspiration pneumonia Acute on chronic renal failure stage IV with hyperkalemia Significant lymphadenopathy in the right axillary and right supraclavicular chains Urinary tract infection, urine culture plus for E coli Dyspnea likely secondary to CHF COPD Hypertension Diabetes mellitus type 2 Chronic lymphedema Depression with anxiety Plan Acute respiratory failure with hypoxia and hypercapnia secondary to acute on chronic diastolic CHF and patient without oxygen, possible underlying aspiration pneumonia: Rapid response called. Patient was cyanotic. Patient given IV Lasix 80 mg. Patient with hypoxia as the patient was without her oxygen. CPAP initiated. ABGs reviewed. Will start BiPAP. Case discussed at length with nephrology and pulmonology. Will recheck ABG in 1 hr to see her response to BiPAP. Will order CT head to further evaluate. Will start IV Zosyn for possible aspiration. Continue DVT prophylaxis. Lab reviewed. Continue IV Lasix. Fentanyl patch removed. If improved will restart tomorrow consider lowering the dose. Spoke with daughter at length. She understands current status at this time. Will continue to monitor the patient closely. Will move the patient closer to the nursing unit with continuous pulse ox. Acute on chronic renal failure stage 4 with hyperkalemia: Patient given Kayexalate this morning. Patient also got Lasix. Case discussed with nephrology. Continue IV Lasix. Significant lymphadenopathy in the right axillary and right supraclavicular chains: Await biopsy report. If abnormal will discuss with Oncology with options. Urinary tract infection, urine culture positive for E coli: Patient will be transition to IV Zosyn to cover for pneumonia. COPD: Continue medication. Continue with BiPAP at this time. Continue with pulmonology recommendations Hypertension: Will monitor closely. IV medication provided as needed. Diabetes mellitus type 2: Monitor accuchecks. Continue sliding scale. Chronic lymphedema: Continue with medication Depression with anxiety: Will provide medication for anxiety. Time Spent Managing Pts Care (In Minutes): 55
[2019-12-15 14:59] LABS: Blood Gas Oxyhemoglobin 94.1 % (94-97); Blood O2 Saturation 96.2 % (92-98.5)
[2019-12-15 15:12] VITALS: O2SAT 92
[2019-12-15] MEDS: NA CHLORIDE 0.9% 250 ML IV PRN ×2 (15:50→16:04)
[2019-12-15 16:55] VITALS: TEMP 96.6
[2019-12-15] MEDS ORDERED: NA CHLORIDE 0.9% 1,000 ML ONE (16:56)
[2019-12-15] MEDS ORDERED: NA CHLORIDE 0.9% 500 ML IV SCH (17:00)
[2019-12-15] MEDS ORDERED: PIPER/TAZO/NS 3.375gm 3.375 GM/100 ML BAG IVPB SCH (17:00)
[2019-12-15] MEDS ORDERED: FENTANYL CITR 100 MCG/2 ML IV PRN (17:15)
[2019-12-15] MEDS ORDERED: LORazepam 2 MG/ML VIAL IV PRN (17:16)
[2019-12-15 17:24] LABS: Arterial Blood Carboxyhemoglob 1.1 % (0-1.5); Blood Gas Oxyhemoglobin 93.1 % (94-97); Blood O2 Saturation 95.5 % (92-98.5)
[2019-12-15 17:48] VITALS: BP 110/70
[2019-12-16] MEDS ORDERED: PANTOPRAZOLE 40MG TABLET PO SCH (06:30)
--- NOTE | 2019-12-16 12:57 | RAD REPORT ---
EXAM DESCRIPTION: CT - Head Brain Wo Cont - 12/15/2019 9:08 pm CLINICAL HISTORY: Alteration of awareness/confusion COMPARISON: None TECHNIQUE: Computed axial tomography of the head was obtained. IV contrast was not requested. All CT scans are performed using dose optimization technique as appropriate and may include automated exposure control or mA/KV adjustment according to patient size. FINDINGS: An intracranial bleed is not seen . The ventricles are normal in caliber. No extra-axial fluid collection is noted. Fluid within the sinuses/ mastoids is not seen. IMPRESSION: No acute intracranial abnormality is seen. If patient's symptoms persist MRI of the bra in would be recommended.
--- NOTE | 2019-12-17 22:58 | P.PN ---
Date of Service: 12/15/19 Vital Signs Temp Pulse Resp BP Pulse Ox 96.6 F L 61 14 110/70 100 12/15/19 16:00 12/15/19 16:00 12/15/19 16:00 12/15/19 17:47 12/15/19 16:00 Microbiology Results 12/07/19 12:50 Catheterized Urine [place] Count - Final >100,000 CFU/ML. 12/07/19 12:50 Catheterized Urine - Final Escherichia Coli Assessment/ Plan: Nephrology No acute events overnight. This morning the patient developed AMS with respiratory distress requiring a rapid response. Limited IH/ ROS due to AMS. Vitals, medications, blood work and imaging reviewed in the chart. General: Confused. HEENT: Atraumatic, Mucous membr. moist/pink Neck: Supple Respiratory: Clear to auscultation bilaterally, Diminished Cardiovascular: Regular rate/rhythm, Edema Gastrointestinal: Soft and benign, Non-distended Musculoskeletal: No clubbing, No contractures Integumentary: No cyanosis, Skin lesion Neurological: Abnormal speech Blood work reviewed in the chart. Imagings Data: EXAM DESCRIPTION: CT - Stone Protocol - 12/07/2019 2:12 pm CLINICAL HISTORY: FLANK PAIN COMPARISON: No comparisons TECHNIQUE: Axial 5 mm thick images were obtained without oral or IV contrast. The [id number]-bw-siyw spans the entirety of the system including uppermost abdomen and lung bases. All CT scans are performed using dose optimization technique as appropriate and may include automated exposure control or mA/KV adjustment according to patient size. FINDINGS: No hydronephrosis is present and no obstructing ureteral calculi. No suspicious renal masses. Isodense masses and pyelonephritis are not excluded on a stone protocol CT scan. No significant adrenal finding. Urinary bladder is fully contracted around a Person catheter. Imaged portions of the liver, spleen and pancreas show no suspicious findings on non-contrast imaging. Cholecystectomy clips are present. No biliary tree dilatation. Small hiatal hernia is present. No acute stomach finding. No dilated large or small bowel. A primary GI process is not suspected. A 4 centimeter periumbilical hernia is present containing fat. This is a minimal amount of congestion or edema. No free air or pneumatosis. Patient has fluid retention in the subcutaneous fatty tissues of the abdomen. Pelvic floor assessment is limited. There is substantial spray artifact from left hip prosthesis. Periaortic/ pericaval small nonspecific lymph nodes are present. Patient has significant bilateral inguinal lymphadenopathy worse on the right. There appears to be external iliac lymphadenopathy on the right that may be measures large is 5 cm x 3 cm. The spray artifact limits detail. Bony degenerative changes are present 50% compression fracture deformity of L4 is present but appears to be old. Degenerative changes are present L4 in the lumbar and lower thoracic spine. Small to moderate right pleural effusion partially imaged. Trace left pleural effusion. Bilateral lobe atelectasis present. IMPRESSION: Abnormal inguinal lymphadenopathy worse on the right with possible external iliac chain pelvic lymphadenopathy as well. Lymph nodes may all be reactive from a lower extremity infectious/ inflammatory process. Pathologic lymphadenopathy cannot be excluded. Isodense masses and pyelonephritis are not excluded on stone protocol technique.Overall exam is limited in the absence of IV contrast. No acute GI process seen. Bilateral pleural effusions more prominent on the right. Atelectasis also present. 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 FINDINGS: Lung volumes are low. Lung markings are further accentuated by large body habitus and portable technique. No dense consolidation in the mid or upper lung mann. Bilateral pleural effusions are present. Cardiomegaly is present with vascular engorgement. No pneumothorax. No acute bony abnormality seen. No acute aortic findings suspected. IMPRESSION: Mild CHF/volume overload pattern accentuated by exam limitations. 2 DIMENSIONAL ASSESSMENT: RIGHT ATRIUM: NORMAL LEFT ATRIUM: NORMAL RIGHT VENTRICLE: NORMAL LEFT VENTRICLE: NORMAL TRICUSPID VALVE: NORMAL MITRAL VALVE: NORMAL PULMONIC VALVE: NORMAL AORTIC VALVE: NORMAL PERICARDIAL EFFUSION: NONE AORTIC ROOT: NORMAL LEFT VENTRICULAR WALL MOTION: NORMAL DOPPLER/COLOR FLOW: NORMAL COMMENTS: NORMAL LEFT VENTRICULAR SIZE AND FUNCTION. MILD MITRAL ANNULAR CALCIFICATION. NO EFFUSION. NO WALL MOTION ABNORMALITY. Conclusions/Impression: A/ ADRIANO suspicious for CRS. Hyperkalemia Hypocalcemia CKD III with proteinuria HTN with CKD/ CHF complicated by hypotension. Hypotension in the setting of multiple medications, worse and concerning for sepsis. Diastolic CHF, A/C. Acute hypoxic respiratory failure. DM II with CKD. Anemia in chronic illness. Acute E.coli cystitis. Toxic metabolic encephalopathy. P/ Continue current POC and Medications. Hold Lasix. Give IVF bolus. Start pressor therapy if no response to IVF. Continue abx. LN biopsy pending. No NSAIDs. AM labs. Daily weight. PT as tolerated. Case reviewed with Dr. Amin. Transfer to ICU due to worsening condition. Family consider hospice. Greater than 30min patient care.
== END 2019-12-15 19:46 | disposition hospice, inpatient (51) | DRG 987 ==
LOC: ER 12:08 → ERHOLD 15:14 → 2ND 16:39
PROVIDERS: ADMIT Family Medicine; ATTEND Family Medicine
PROC: 07953ZX Drainage of Right Axillary Lymphatic, Percutaneous Approach, Diagnostic (ICD-10-PCS; principal; 2019-12-09)
PROC: 0T9B70Z Drainage of Bladder with Drainage Device, Via Natural or Artificial Opening (ICD-10-PCS; 2019-12-14)
PROC: 5A09357 Assistance with Respiratory Ventilation, Less than 24 Consecutive Hours, Continuous Positive Airway Pressure (ICD-10-PCS; 2019-12-15)
DX: J96.21 Acute and chronic respiratory failure with hypoxia (principal); I50.33 Acute on chronic diastolic (congestive) heart failure; G92 Toxic encephalopathy; J69.0 Pneumonitis due to inhalation of food and vomit; N39.0 Urinary tract infection, site not specified; N17.9 Acute kidney failure, unspecified; I13.0 Hypertensive heart and chronic kidney disease with heart failure and stage 1 through stage 4 chronic kidney disease, or unspecified chronic kidney disease; N30.00 Acute cystitis without hematuria; N18.4 Chronic kidney disease, stage 4 (severe); J96.22 Acute and chronic respiratory failure with hypercapnia; J44.9 Chronic obstructive pulmonary disease, unspecified; I89.0 Lymphedema, not elsewhere classified; E87.5 Hyperkalemia; E83.51 Hypocalcemia; E11.22 Type 2 diabetes mellitus with diabetic chronic kidney disease; F41.8 Other specified anxiety disorders; B96.20 Unspecified Escherichia coli [E. coli] as the cause of diseases classified elsewhere; E87.8 Other disorders of electrolyte and fluid balance, not elsewhere classified; R59.1 Generalized enlarged lymph nodes; Z85.3 Personal history of malignant neoplasm of breast; Z90.10 Acquired absence of unspecified breast and nipple
CPT/HCPCS: 36415; 38505; 70450; 71045; 74176; 76377; 76882; 76942; 80048; 80076; 81001; 81003; 81015; 82533; 82550; 82570; 82784; 82805; 82947; 83036; 83605; 83735; 83880; 84100; 84132; 84145; 84165; 84300; 84439; 84443; 84484; 84550; 85025; 85652; 86038; 86140; 87040; 87077; 87086; 87088; 87186; 88305; 93005; 93306; 94660; 94760; 96374; 96375; 97110; 97112; 97161; 97530; 99251; 99285; J0610; J0696; J1644; J1940; J2543; J3010; J7030; J7050; U0002

== ENCOUNTER 2019-12-15 20:07 | Inpatient (IN) | payer OTHER ==
[2019-12-15] MEDS ORDERED: ONDANSETRON 4 MG/2 ML VIAL IV PRN (20:18)
[2019-12-15] MEDS ORDERED: SCOPOLAMINE HYDROBROMIDE PATCH TD SCH (21:00)
[2019-12-16 00:23] VITALS: O2SAT 99; BMI 56.5
--- OUTSIDE RECORDS SUMMARY | 2019-12-16 02:37 | XMS REPORT | Continuity of Care Document ---
:1940 Author Organization [facility] t Address [address] [place] [address] Care Team Providers Name Role Phone Unavailable Unavailable Unavailable Problems This patient has no known problems. Allergies, Adverse Reactions, Alerts This patient has no known allergies or adverse reactions. Social History Social Habit Start Date Stop Date Quantity Comments Source Sex Assigned At [facility] Medications This patient has no known medications. Procedures Procedure Date / Time Performed Performing Clinician Sourc e SARS-COV2/RT-PCR ([facility] 2019-12-15 05:25:00 [facility] Test Description Test Time Test Comments Results Result Comments Source SARS-CoV2/RT-PCR ([facility] & Ref Labs) 2019-12-15 20:59:00 Test Item Value Reference Range Interpretation Comme nts SARS-COV2/RT-PCR (test code = Negative Not Detected, Negative 05246-7) SARS-COV-2 PERFORMING LAB [facility] (test code = 24893-6) ROXANNE (test code = ROXANNE) Negative result for this test determines that SARS-CoV-2 RNA was not present in the specimen above the Limit of Detection (LOD). However, Negative results do not preclude SARS-CoV-2 infection and should not be used as the sole basis for treatment or patient management decisions. Negative results must be combined with clinical observations, patient history, and epidemiological information. A false negative result may occur if a specimen is improperly collected, transported or handled. A false negative result should be considered if patient's recent exposures or clinical presentation indicate that COVID-19 (SARS-CoV-2) is likely and diagnostic tests for other causes of illness are negative. Re-testing should be considered in cases of suspected false negatives. The limit of detection for this assay is 800 copies/mL. This SARS CoV-2 test is a real-time RT-PCR test intended for the qualitative detection of nucleic acid from SARS-CoV-2 in a nasopharyngeal swab specimen collected from individuals suspected of COVID-19 by their healthcare provider. This test has not been Food and Drug Administration (FDA) cleared or approved. This is a modified version of an approved Emergency Use Authorization (EUA) and is in the process of review by the FDA. Once authorized by the FDA, the issued EUA will be effective until the declaration that circumstances exist justifying the authorization of the emergency use of in vitro diagnostic tests for detection and/or diagnosis of COVID-19 is terminated under Section 564(b)(2) of the Act or the EUA is revoked under Section 564(g) of the Act. Fact Sheet for Healthcare Providers:https://www.[employer]sites/default/files/produ ct/documents/Fact_Sheet_HC_Pr jkwipzw_Aiqc_CRHJ-WzS-0.pdf Fact Sheet for Healthcare Patients:https://www.[employer]/sites/default/files/produc t/documents/Fact_Sheet_Patien gn_Wnfm_XUXS-VpR-9.pdf Performing Laboratory:[facility], [place] [address] [place], [place] [address]ARS-COV2/RT-PCR ([facility])2019-12-15 20:59:00 Test Item Value Reference Range Interpretation Comments SARS-COV2/RT-PCR (test code = Negative Not Detected, Negative [id number]) SARS-COV-[address] [facility] (test code = 8795919) Negative result for this test determines that SARS-CoV-2 RNA was not present in the specimen above the Limit of Detection (LOD). However, Negative results do not preclude SARS-CoV-2 infection and should not be used as the sole basis for treatment or patient management decisions. Negative results mustbe combined with clinical observations, patient history, and epidemiological information. A false negative result may occur if a specimen is improperly collected, transported or handled. A false negative result should be considered if patient's recent exposures or clinical presentation indicate that COVID-19 (SARS-CoV-2) is likely and diagnostic tests for other causes of illness are negative. Re-testing should be considered in cases of suspected false negatives.The limit of detection for this assay is 800 copies/mL.This SARS CoV-2 test is a real-time RT-PCR test intended for the qualitative detection of nucleic acid from SARS-CoV-2 in a nasopharyngeal swab specimen collected from individuals susp ected of COVID-19 by their healthcare provider.This test has not been Food and Drug Administration (FDA) cleared or approved. This is a modified version of an approved Emergency Use Authorization (EUA) and is in the process of review by the FDA. Once authorized by the FDA, the issued EUA will be effective until the declaration that circumstances exist justifying the authorization of the emergency use of in vitro diagnostic tests for detection and/or diagnosis of COVID-19 is terminated under Section 564(b)(2) of the Act or the EUA is revoked under Section 564(g) of the Act.Fact Sheet for Healthcare Providers:https://www.[employer]/sites/default/files/product/documents/Fact_Shee k_QI_Fyycllttw_Ryyv_QGNU-ZnE-0.pdfFact Sheet for Healthcare Patients:https://www.[employer]/sites/default/files/product/ documents/Wkjp_Urlih_Rnixcwyf_Jghr_VLIH-UfN-9.pdfPerforming Laboratory:[facility] [place] [address]
--- OUTSIDE RECORDS SUMMARY | 2019-12-16 02:37 | XMS REPORT | Clinical Summary ---
:1940 Author Organization [facility] Address [address] [place] [address] Care Team Providers Name Role Phone Unavailable Primary Care Provider Unavailable Allergies Not on File Medications Not on file Active Problems Not on file Encounters Date Type Specialty Care Team Description 12/15/2019 Lab Requisition Lab after 12/14/2018 Social History Tobacco Use Types Packs/Day Years Used Date Never Assessed Sex Assigned at Date Recorded Not on file Job Start Date Occupation Industry Not on file Not on file Not on file Travel History Travel Start Travel End No recent travel history available. Last Filed Vital Signs Not on file Plan of Treatment Not on file Procedures Procedure Name Priority Date/Time Associated Diagnosis Comme nts SARS-COV2/RT-PCR Routine 12/15/2019 5:25 AM Resu lts for this ([facility]) CDT procedure are in the results section. after 12/14/2018 Results SARS-CoV2/RT-PCR ([facility]) (12/15/2019 5:25 AM CDT) SARS-COV2/RT-PCR Negative Not Detected, Negative [facility] SARS-COV-2 PERFORMING LAB [facility] Specimen Other Narrative Performed At Negative result for this test determines that [facility] SARS-CoV-2 RNA was not present in the specimen above the Limit of Detection (LOD).However, Negative results do not preclude SARS-CoV-2 infection and should not be used as the sole basis for treatment or patient management decisions. Negative results must be combined with clinical observations, patient history, and epidemiological information. A false negative result may occur if a specimen is improperly collected, transported or handled.A false negative result should be considered if patient's recent exposures or clinical presentation indicate that COVID-19 (SARS-CoV-2) is likely and diagnostic tests for other causes of illness are negative.Re-testing should be considered in cases of suspected [...] Food and Drug Administration (FDA) cleared or approved.This is a modified version of an approved [...] of the Act. Fact Sheet for Healthcare Providers: https://www.[employer]/sites/default/files/pro duct/documents/Fact_Sheet_HC_Providers_Lyra_SA RS-CoV-2.pdf Fact Sheet for Healthcare Patients: https://www.[employer]/sites/default/files/pro duct/documents/Fact_Sheet_Patients_Lyra_SARS-C oV-2.pdf Performing Laboratory: [address] [place] [address] Performing Organization Address City/State/Zipcode Phone Number [address] [address] CENTER after 12/14/2018
[2019-12-16] MEDS: MORPHINE 2 MG/ML SYR IV PRN ×3 (02:52→20:19)
[2019-12-16] MEDS: LORazepam 2 MG/ML VIAL IV PRN ×3 (11:31→21:15)
[2019-12-16 22:54] VITALS: BP 115/60; TEMP 97.1
[2019-12-17] MEDS: LORazepam 2 MG/ML VIAL IV PRN (02:38)
== END 2019-12-17 04:30 | disposition expired | DRG 951 ==
LOC: 2ND 20:07
PROVIDERS: ADMIT Internal Medicine Hematology & Oncology; ATTEND Internal Medicine Hematology & Oncology
DX: Z51.5 Encounter for palliative care (principal); F41.9 Anxiety disorder, unspecified; E11.9 Type 2 diabetes mellitus without complications; J44.9 Chronic obstructive pulmonary disease, unspecified; I10 Essential (primary) hypertension
CPT/HCPCS: J2270